=== PATIENT | male | born 1945 | race Two or more races ===

== ENCOUNTER 2017-03-20 17:21 | Inpatient (IN) | payer MEDICARE, OTHER ==
[~2017-03-20] VITALS: Ht 167.6 cm; Wt 127.0 kg
--- NOTE | 2017-03-20 17:24 | NUR ---
BIBRA FROM HOME DUE TO SOB X 1 WEEK WORST TODAY. PATIENT IS SATING 89% ON ROOM AIR,. AAO4. NO CHEST PAIN. AFEBRILE. GOWNED PT AND PLACED ON TELE MONITOR. VSS
[2017-03-20] MEDS ORDERED: ASPIRIN EC 325 MG TABLET.DR PO ONE (17:41)
[2017-03-20] MEDS ORDERED: FUROSEMIDE 40 MG/4 ML VIAL ONE (17:41)
[2017-03-20 17:59] LABS: BASOPHILS % (AUTO) 0.3 % (0.0-2.0); EOSINOPHILS # (AUTO) 0.3 /CMM (0.0-0.7); EOSINOPHILS % (AUTO) 4.8 % (0.0-6.0); HEMATOCRIT 43 % (39-51); HEMOGLOBIN 13.8 g/dL (13.5-17.5); LYMPHOCYTES # (AUTO) 1.2 /CMM (0.8-4.8); LYMPHOCYTES % (AUTO) 18.5 % (20.0-44.0); MEAN CORPUSCULAR HEMOGLOBIN 30 PG (26.0-33.0); MEAN CORPUSCULAR HGB CONC 32 g/dl (31.0-36.0); MEAN CORPUSCULAR VOLUME 93 fL (80-96); MONOCYTES # (AUTO) 0.6 /CMM (0.1-1.30); MONOCYTES % (AUTO) 9.4 % (2.0-12.0); NEUTROPHILS # (AUTO) 4.3 /CMM (1.8-8.9); PLATELET COUNT (AUTO) 161 /CMM (150-450); RDW COEFFICIENT OF VARIATION 14.6 (11.5-15.0); RED BLOOD CELL COUNT(AUTO) 4.58 MIL/uL (4.5-6.0); WHITE BLOOD COUNT (AUTO) 6.4 K/uL (4.3-11.0)
[2017-03-20] MEDS ORDERED: FUROSEMIDE 40 MG/4 ML VIAL IV ONE (18:00)
[2017-03-20] MEDS ORDERED: ASPIRIN 325 MG TABLET PO ONE (18:00)
[2017-03-20 18:16] LABS: TROPONIN I < 0.017 ng/mL (0.00-0.056)
[2017-03-20 18:18] LABS: INR 0.98 (0.87-1.13); PROTHROMBIN TIME 10.2 SECS (9.5-12.7)
[2017-03-20 18:21] LABS: ALANINE AMINOTRANSFERASE 26 U/L (12-78); ALBUMIN 3.4 g/dL (3.4-5.0); ALKALINE PHOSPHATASE 60 U/L (46-116); ASPARTATE AMINOTRANSFERASE 20 U/L (15-37); B-TYPE NATRIURETIC PEPTIDE 28 PG/ML (0-125); BILIRUBIN,DIRECT 0.1 mg/dL (0.0-0.2); BILIRUBIN,TOTAL 0.4 mg/dL (0.2-1.0); CALCIUM, SERUM 9.4 mg/dL (8.5-10.1); CHLORIDE 106 mmol/L (98-107); GLUCOSE 102 mg/dL (74-106); POTASSIUM 4.4 mmol/L (3.5-5.1); SODIUM SERUM 145 mmol/L (136-145); TOTAL PROTEIN, SERUM 7.3 g/dL (6.4-8.2); UREA NITROGEN, BLOOD 17 mg/dL (7-18)
[2017-03-20 18:41] LABS: CARBON DIOXIDE 40 mmol/L (21-32)
--- NOTE | 2017-03-20 19:03 | NUR ---
CALLED [facility] [employer], TUBE LASER OPERATOR WAS PAGED.
--- NOTE | 2017-03-20 19:24 | NUR ---
REPORT GIVEN TO PRADIP URIARTE FOR ALESSANDRO
[2017-03-20] MEDS ORDERED: MAG HYDROX/AL HYDROX/SIMETH 30 ML UDC PO PRN (19:30)
[2017-03-20] MEDS ORDERED: ONDANSETRON HCL/PF 4 MG/2 ML VIAL IVP PRN (19:30)
[2017-03-20] MEDS ORDERED: ZOLPIDEM TARTRATE 5 MG TABLET PO PRN (19:30)
[2017-03-20] MEDS ORDERED: Z GUARD REMEDY 2 OZ OINT TP PRN (19:30)
[2017-03-20] MEDS ORDERED: MAGNESIUM HYDROXIDE 30 ML UDC PO PRN (19:30)
[2017-03-20] MEDS ORDERED: ACETAMINOPHEN 325 MG TABLET PO PRN (19:30)
[2017-03-20] MEDS ORDERED: HYDROCODONE/APAP 10/325MG 1 EA TABLET PO PRN (19:30)
[2017-03-20] MEDS ORDERED: IOHEXOL-350 100 ML VIAL IV ONE (19:40)
--- NOTE | 2017-03-20 19:47 | NUR ---
PT TRANASPORTED TO CT VIA GURNEY BY RADIOLOGY TEAM
[2017-03-20 21:30] VITALS: BP 140/76
--- NOTE | 2017-03-20 21:30 | NUR ---
tele/rn notes RECEIVED NEW ADMITTED PATIENT ARRIVED FROM ER ON A GURNEY, MONTSERRATIAN SPEAKING OBESE MAN W/ DX SOB, REPORTED GRADUAL ONSET FOR THE PAST WEEK W/ HX OF CVA, HTN, CHF, IL W NKA. ALERT, ORIENTED X3, ON TELE AT NORMAL SR IN 80'S W SOME PAC. CONTINENT, WILL PROVIDE MEDICATION ORDERED, SLEEPING PILL REQUESTED, REPORTED PAIN IN RIGHT ARM,HOB ELEVATED ON OXYGEN VIA NC AT 2l, SKIN DRY AND INTACT. ALL 4 QUADRANTS NORMAL. CALL LIGHTS WITHIN REACH. ROOM ORIENTATION PROVIDED. BELONGINGS LIST CHECK. MD MEDICATION LIST ORDERED. SKIN INTACT W/ SOME REDNESS IN THE BACK. WILL CONTINUE TO MONITOR.
--- NOTE | 2017-03-20 21:34 | NUR ---
TRANSPORTED PT TO TELE BED WITHOUT INCIDENT
[2017-03-20 21:40] VITALS: BP 140/78
[2017-03-20] MEDS ORDERED: NITROGLYCERIN PACKET 1 GM PACKET ONE (22:06)
[2017-03-20] MEDS: HYDROCODONE/APAP 5/325MG 1 EACH TABLET PO PRN (22:13)
[2017-03-20] MEDS: METOPROLOL TARTRATE 25 MG TABLET PO SCH (22:14)
[2017-03-20] MEDS: NITROGLYCERIN 30 GM TUBE TP SCH (22:16)
[2017-03-20] MEDS: ENOXAPARIN SODIUM 40 MG/0.4 ML DISP.SYRIN SQ SCH (22:18)
[2017-03-21] VITALS (41 sets, daily range): BP systolic 72–127; BP diastolic 48–84
[2017-03-21] MEDS ORDERED: NITROGLYCERIN PACKET 1 GM PACKET ONE (04:58)
[2017-03-21] MEDS: NITROGLYCERIN 30 GM TUBE TP SCH ×3 (05:06→21:00)
[2017-03-21 05:55] LABS: CHOLESTEROL 155 mg/dL (<200); HDL CHOLESTEROL 80 mg/dL (40-60); LDL 65 mg/dL (0-99); TRIGLYCERIDES 88 mg/dL (30-150)
[2017-03-21 05:59] LABS: BASOPHILS % (AUTO) 0.3 % (0.0-2.0); EOSINOPHILS # (AUTO) 0.2 /CMM (0.0-0.7); EOSINOPHILS % (AUTO) 2.9 % (0.0-6.0); HEMATOCRIT 42 % (39-51); HEMOGLOBIN 13.5 g/dL (13.5-17.5); LYMPHOCYTES % (AUTO) 13.1 % (20.0-44.0); MEAN CORPUSCULAR HEMOGLOBIN 30 PG (26.0-33.0); MEAN CORPUSCULAR HGB CONC 32 g/dl (31.0-36.0); MEAN CORPUSCULAR VOLUME 94 fL (80-96); MONOCYTES # (AUTO) 0.7 /CMM (0.1-1.30); NEUTROPHILS # (AUTO) 5.6 /CMM (1.8-8.9); NEUTROPHILS % (AUTO) 74.7 % (43.0-81.0); PLATELET COUNT (AUTO) 163 /CMM (150-450); RED BLOOD CELL COUNT(AUTO) 4.44 MIL/uL (4.5-6.0); WHITE BLOOD COUNT (AUTO) 7.5 K/uL (4.3-11.0)
[2017-03-21 06:04] LABS: CALCIUM, SERUM 8.9 mg/dL (8.5-10.1); CARBON DIOXIDE 39 mmol/L (21-32); CHLORIDE 103 mmol/L (98-107); GLUCOSE 91 mg/dL (74-106); PHOSPHORUS 5.2 mg/dL (2.5-4.9); POTASSIUM 4.9 mmol/L (3.5-5.1); SODIUM SERUM 144 mmol/L (136-145); UREA NITROGEN, BLOOD 17 mg/dL (7-18)
--- NOTE | 2017-03-21 06:33 | NUR ---
TELE/RN OPENING NOTES PATIENT IN BED. REQUIRE REPOSITION, WILL CONTINUE MONITOR.. CALL LIGHTS WITHIN REACH, ON OXYGEN VIA NC AT 2L. MONITORING FOR ANY S/S OF .WILL ENDORSE TO AM RN.TELE READING AT SR 73 W/ PAC. ABLE TO SLEEP DURING THE NIGHT, PAIN MEDICATION EFFECTIVE. SKIN INTACT W/ NOTED DISCOLORATION ON RIGHT THIGH.
--- NOTE | 2017-03-21 07:30 | NUR ---
PROPULSION MOTOR AND GENERATOR REPAIRER AM NOTES PATIENT IN BED. AO X 3, HAITIAN SPEAKING, ON 2L O2, NO SOB, NAD, RESPIRATION UNLABORED, TELEMETRY READS SR HR 78, DENIES PAIN OR DISCOMFORT, LEFT AC G20 HL FLUSHES WELL, SITE CLEAR, CARDIAC DIET, BED REST FOR NOW, BED LOW LOCKED, CALL LIGHT WITHIN REACH, DISCUSSED POC, CALL LIGHT WITHIN REACH, WILL CONTINUE TO MONITOR.
[2017-03-21] MEDS: METOPROLOL TARTRATE 25 MG TABLET PO SCH ×2 (09:00→16:57)
[2017-03-21] MEDS ORDERED: FUROSEMIDE 40 MG/4 ML VIAL IV SCH (09:00)
--- NOTE | 2017-03-21 09:30 | NUR ---
MS RN NOTES SCHEDULED 0900 MEDICATIONS NOT GIVEN, PATIENT TOOK OWN MEDICATIONS, MICHELE CRANDALL AWARE.
[2017-03-21] MEDS ORDERED: DOXA8TAB79 PO (10:17)
[2017-03-21] MEDS ORDERED: FINA5TAB3 PO (10:17)
[2017-03-21] MEDS ORDERED: GABA600T2 PO (10:17)
[2017-03-21] MEDS ORDERED: ATOR40TA PO (10:17)
[2017-03-21] MEDS ORDERED: FURO40TA5 PO (10:17)
[2017-03-21] MEDS ORDERED: SERT50TA PO (10:17)
[2017-03-21] MEDS ORDERED: BENA40TA2 PO (10:17)
[2017-03-21] MEDS ORDERED: TEMA30CA PO (10:17)
[2017-03-21] MEDS ORDERED: HYDR-552 PO (10:17)
[2017-03-21] MEDS ORDERED: PROP15DR EACHEYE (10:19)
[2017-03-21] MEDS ORDERED: ALBUTEROL FS 2.5 MG/0.5 ML VIAL.NEB NEB PRN (11:00)
[2017-03-21] MEDS: IPRATROPIUM NEB FS 0.5 MG/2.5 ML AMPUL.NEB NEB SCH ×3 (11:09→19:55)
[2017-03-21] MEDS ORDERED: PEG EACHEYE PRN (12:00)
[2017-03-21] MEDS ORDERED: TEMAZEPAM 15 MG CAPSULE PO PRN (12:00)
[2017-03-21] MEDS ORDERED: PROPYLENE GLYCOL EACHEYE PRN (12:00)
[2017-03-21] MEDS: GABAPENTIN 300 MG CAPSULE PO SCH ×3 (12:13→21:09)
[2017-03-21] MEDS: DOXAZOSIN MESYLATE (4 MG) 4 MG TABLET PO SCH (12:14)
[2017-03-21 14:44] LABS: ABG BASE EXCESS 8.3 mmol/L; ABG PCO2 81.8 mmHg (35.0-45.0); ABG PH 7.286 (7.350-7.450); ABG PO2 77.5 mmHg (75.0-100.0); AaDO2 25.6 mmHg; COHb 0.5 % (0.5-1.5); MetHb 0.7 % (0.0-1.5); O2Hb 92.9 % (94.0-97.0); SITE, ABG Right Radial; VENT MODE, BG NASAL CANNULA
--- NOTE | 2017-03-21 14:45 | NUR ---
ELECTROTYPE MOLDER NOTES ABG RESULT RELAYED TO MICHELE STEPHENS, PER HER TO TRANSFER PT TO ICU AND START BIPAP.
--- NOTE | 2017-03-21 15:45 | NUR ---
HAMMERER HELPER NOTES PATIENT STARTED ON BIPAP EARLIER. TRANSFERRED TO ICU RM 254. REPORT GIVEN TO IRVIN. ALL BELONGINGS CHECKED AND TRANSFERRED.
[2017-03-21] MEDS: ACETYLCYSTEINE 10% SOLN 400 MG/4 ML VIAL NEB SCH (16:00)
--- NOTE | 2017-03-21 16:00 | NUR ---
PATIENT TRANSFERRED TO ICU AND PLACED ON BIPAP WITH SETTINGS SET PER DR HERNANDEZ. ALARMS CHECKED + AUDIBLE. AMBU BAG AT HOB Addendum: 03/21/17 at 1633 by CHARISSE CARRERA RT Amended: Links added.
--- NOTE | 2017-03-21 16:50 | NUR ---
PAPER AND PRINTS RESTORER RECEIVED PT FROM 3RD FLOOR BY BED FOR ALOC AND ABNORMAL ABG. REPORT RECEIVED FROM HENRIETTA. PT OBTUNDED AROUSEABLE ONLY TO VIGOROUS CHEST RUBS. PLACED ON BIPAP. DR HERNANDEZ EVALUATING PT. WILL START NEW IV LINES. WILL GET ABG IN 2 HOURS.
[2017-03-21] MEDS: BENAZEPRIL HCL 20 MG TABLET PO SCH (16:57)
[2017-03-21] MEDS ORDERED: IV D5/ 0.9% NACL 1,000 ML IV ONE (17:00)
[2017-03-21] MEDS ORDERED: IV NS 0.9% 250 ML BAG IV ONE (17:00)
[2017-03-21] MEDS ORDERED: IV NS 0.9% 250 ML IV ONE ×2 (17:00→18:00)
--- NOTE | 2017-03-21 17:15 | NUR ---
ICU/RN - Notes Pt more awake and alert at this time. On BiPap with settings as ordered, tolerating well. On tele reading SR with PAC's 76. Blood pressure marginally hypotensive, pt was given 250mL NS bolus and started on IVF D5 1/2NS @ 100mL/hr. Pt kept NPO. Daughter at bedside and updated on plan of care. Safety and comfort measures in place. Will continue to monitor pt closely.
--- NOTE | 2017-03-21 17:46 | NUR ---
ICU/RN - Notes Jenni Courtney NP made aware that pt still hypotensive with BP 88/51. Received orders to give another 250mL NS bolus. Will carry out.
[2017-03-21 18:01] LABS: ABG BASE EXCESS 7.9 mmol/L; ABG PCO2 78.1 mmHg (35.0-45.0); ABG PH 7.296 (7.350-7.450); AaDO2 44.1 mmHg; COHb 0.3 % (0.5-1.5); MetHb 0.7 % (0.0-1.5); O2Hb 93.1 % (94.0-97.0); SITE, ABG Right Radial; VENT MODE, BG BIPAP 22/12 R14 30%
--- NOTE | 2017-03-21 18:43 | NUR ---
ICU/RN - Notes Pt complains of SOB and requests for breathing treatment. RT at bedside for treatment. Addendum: 03/22/17 at 0730 by DIONICIO RODRIGUEZ RN Wrong patient
--- NOTE | 2017-03-21 18:50 | NUR ---
ICU/RN - Notes Jenni Courtney NP made aware that pt still remains hypotensive with BP 80/54. No urine output. Received orders to start pt on Levophed to keep SBP >90, change IVF rate to 75mL/hr, and insert escobar catheter. Daughter at bedside and updated on plan of care.
[2017-03-21] MEDS: IV D5/ 0.9% NACL 1,000 ML IV PRN (18:55)
[2017-03-21] MEDS ORDERED: IV D5/0.45 NACL 1,000 ML IV PRN (19:00)
[2017-03-21] MEDS ORDERED: NOREPINEPHRINE 8 MG in IV D5W 500 ML IV PRN (19:00)
--- NOTE | 2017-03-21 20:00 | NUR ---
RN INITIAL NOTES RECEIVED THE PATIENT ON BED, AWAKE, A/O X2-3, MAINLY TUVALUAN SPEAKING. ON BIPAP WITH SETTINGS RATE 14, 30% FIO2, 25/12, SATURATING WELL, NO S/S OF RESP DISTRESS. CURRENTLY SR ON THE MONITOR, HR 70-80'S. ON DIAPERS ONLY, MAYO CATH IS ORDERED TO BE INSERTED. LEFT AC 20G, LEFT WRIST 20G AND RIGHT HAND 20G WITH D5 1/2NS @ 75MLS/HR, ALL LINES FLUSHED AND PATENT, NO S/S OF INFILTRATION/INFECTION, DRESSINGS CDI. BED LOW AND LOCKED, SIDERAILS UP, CALL LIGHT WITHIN REACH. WILL MONITOR
--- NOTE | 2017-03-21 20:51 | NUR ---
RN NOTES 1999 - NOTIFIED MICHELE CRANDALL NP THAT MAYO INSERTION WAS UNSUCCESSFUL EVEN WITH A COUDET CATHETER. ATTEMPTS WERE DONE BY 3 RN'S INCLUDING THE CRIMINAL INVESTIGATOR CUSTOMS. NOTIFIED HER THAT THERE SEEMS TO BE AN OBSTRUCTION. KARLEY STEPHENS ORDERED FLOMAX TO BE STARTED TONIGHT AND TO DO A BLADDER SCAN TO CHECK URINE RESIDUALS 2029 - NOTIFIED MICHELE CRANDALL NP THAT BLADDER SCAN IS MALFUNCTIONING, ALWAYS SHOWING A ZERO VALUE APPARENTLY SINCE LAST WEEK PER OTHER RN'S. PT IS NOT DISTENDED, DENIES ANY PAIN OR PRESSURE FROM THE ABDOMINAL AREA. LAST KNOWN VOID WAS NOON TODAY 2039 - FARM MECHANIC SHELBY WAS CALLED TO SEE IF HE CAN TRY TO INSERT A COUDET CATH WHEN HE HAS TIME. PER KARLEY STEPHENS, IF UNSUCCESSFUL ATTEMPT BY FARM MECHANIC, ORDER STAT ULTRASOUND OF THE BLADDER FOR THE PATIENT
[2017-03-21] MEDS: TAMSULOSIN 0.4 MG CAP.SR.24H PO SCH (21:07)
[2017-03-21] MEDS: HYDROCODONE/APAP 5/325MG 1 EACH TABLET PO PRN (21:09)
[2017-03-21] MEDS: ENOXAPARIN SODIUM 40 MG/0.4 ML DISP.SYRIN SQ SCH (21:10)
--- NOTE | 2017-03-21 21:58 | NUR ---
RN NOTES US BLADDER DONE WITH 120MLS RESIDUALS NOTED. NOTIFIED KARLEY FREEZER TUNNEL OPERATOR. ALSO TOLD HER PATIENT IS REQUESTING TEMAZEPAM FOR SLEEPING. KARLEY STEPHENS ORDERED 7.5MG TEMAZEPAM PRN FOR SLEEPING. SHE ALSO SAID TO REMIND DIRECTOR RECREATION IF THEY COULD POSSIBLE INSERT MAYO WHEN THEY ARE NOT BUSY
[2017-03-21] MEDS ORDERED: TEMAZEPAM 7.5 MG CAPSULE ONE (22:06)
[2017-03-21] MEDS: TEMAZEPAM 7.5 MG CAPSULE PO PRN (22:10)
[2017-03-22] VITALS (50 sets, daily range): BP systolic 97–140; BP diastolic 45–91
[2017-03-22] MEDS: ACETYLCYSTEINE 10% SOLN 400 MG/4 ML VIAL NEB SCH ×4 (00:07→23:48)
[2017-03-22] MEDS: IPRATROPIUM NEB FS 0.5 MG/2.5 ML AMPUL.NEB NEB SCH ×7 (00:07→23:48)
[2017-03-22] MEDS: IV D5/ 0.9% NACL 1,000 ML IV PRN ×2 (02:10→16:07)
[2017-03-22 04:46] LABS: BASOPHILS % (AUTO) 0.3 % (0.0-2.0); EOSINOPHILS # (AUTO) 0.1 /CMM (0.0-0.7); HEMATOCRIT 38 % (39-51); HEMOGLOBIN 12.3 g/dL (13.5-17.5); LYMPHOCYTES # (AUTO) 0.9 /CMM (0.8-4.8); LYMPHOCYTES % (AUTO) 13.1 % (20.0-44.0); MEAN CORPUSCULAR HEMOGLOBIN 30 PG (26.0-33.0); MEAN CORPUSCULAR HGB CONC 33 g/dl (31.0-36.0); MEAN CORPUSCULAR VOLUME 93 fL (80-96); MONOCYTES # (AUTO) 0.6 /CMM (0.1-1.30); MONOCYTES % (AUTO) 9.5 % (2.0-12.0); NEUTROPHILS % (AUTO) 76.1 % (43.0-81.0); PLATELET COUNT (AUTO) 143 /CMM (150-450); RDW COEFFICIENT OF VARIATION 14.8 (11.5-15.0); RED BLOOD CELL COUNT(AUTO) 4.06 MIL/uL (4.5-6.0); WHITE BLOOD COUNT (AUTO) 6.5 K/uL (4.3-11.0)
[2017-03-22] MEDS ORDERED: NITROGLYCERIN PACKET 1 GM PACKET ONE (04:47)
[2017-03-22] MEDS: NITROGLYCERIN 30 GM TUBE TP SCH ×3 (04:56→21:29)
[2017-03-22 05:13] LABS: CALCIUM, SERUM 8.8 mg/dL (8.5-10.1); CARBON DIOXIDE 38 mmol/L (21-32); CHLORIDE 106 mmol/L (98-107); CREATININE 1.2 mg/dL (0.6-1.3); GLUCOSE 105 mg/dL (74-106); MAGNESIUM 2.1 mg/dL (1.8-2.4); PHOSPHORUS 3.9 mg/dL (2.5-4.9); SODIUM SERUM 143 mmol/L (136-145); UREA NITROGEN, BLOOD 30 mg/dL (7-18)
--- NOTE | 2017-03-22 06:30 | NUR ---
RN CLOSING NOTES PT REMAINS STABLE OF THE MOMENT. REMAINS TO BE ON BIPAP WITH SAME SETTINGS. ALL DUE MEDS GIVEN, AM CARE PROVIDED. WILL ENDORSE CONTINUITY OF CARE TO AM RN
--- NOTE | 2017-03-22 07:45 | NUR ---
ICU/RN - Initial Notes Received pt in bed on Bipap, with settings as ordered. Alert and oriented x3. Denies pain or discomfort. On tele reading SR 69. PICC line on CAMRON patent and intact, with IVF infusing well. Safety and comfort measures in place. Will continue to monitor pt closely.
[2017-03-22] MEDS: FINASTERIDE (5 MG) 5 MG TABLET PO SCH (08:13)
[2017-03-22] MEDS: ASPIRIN 81 MG TAB.CHEW PO SCH (08:13)
[2017-03-22] MEDS: BENAZEPRIL HCL 20 MG TABLET PO SCH ×2 (08:13→16:08)
[2017-03-22] MEDS: GABAPENTIN 300 MG CAPSULE PO SCH ×4 (08:13→21:28)
[2017-03-22] MEDS: SERTRALINE HCL 50 MG TABLET PO SCH (08:13)
[2017-03-22] MEDS: ATORVASTATIN 40 MG TABLET PO SCH (08:13)
[2017-03-22] MEDS: DOXAZOSIN MESYLATE (4 MG) 4 MG TABLET PO SCH (08:13)
[2017-03-22] MEDS: METOPROLOL TARTRATE 25 MG TABLET PO SCH ×2 (08:14→16:08)
--- NOTE | 2017-03-22 08:15 | NUR ---
ICU/RN - Notes Pt placed on O2 @ 4lpm via nasal cannula by Nisreen CRUZ. Tolerating well, no s/s of respiratory distress. Pt given PO medications, no s/s of aspiration.
[2017-03-22 09:22] LABS: ABG BASE EXCESS 8.8 mmol/L; ABG OXYGEN SATURATION 95.1 % (92.0-98.5); ABG PCO2 66.8 mmHg (35.0-45.0); ABG PH 7.357 (7.350-7.450); ABG PO2 83.4 mmHg (75.0-100.0); AaDO2 95.8 mmHg; COHb 0.6 % (0.5-1.5); MetHb 0.4 % (0.0-1.5); O2Hb 94.1 % (94.0-97.0); SITE, ABG Right Radial; VENT MODE, BG NASAL CANNULA
--- NOTE | 2017-03-22 13:33 | NUR ---
ICU/RN - Notes Physical therapy at bedside for evaluation. Pt sitting on chair at bedside, in no acute distress.
--- NOTE | 2017-03-22 17:00 | NUR ---
ICU/RN - Notes Pt noted with desaturation SpO2 86% on room air. Pt placed back on nasal cannula @ 2lpm. Will continue to monitor.
--- NOTE | 2017-03-22 18:12 | NUR ---
ICU/RN - Notes Pt eating dinner in no acute distress. Daughter at bedside.
--- NOTE | 2017-03-22 19:30 | NUR ---
EMBROIDERY CUTTER: RECEIVED PT ALERT AND ORIENTED X 3. ON 2L 02 VIA NC WT NO ACUTE DISTRESS. NO C/O PAIN OR EVIDENCE OF DISCOMFORT. SR ON INSTRUMENT INSTALLER. ANGELA PICC LINE INFUSING D5NS AT 75ML/HR WT NO COMPLICATIONS. HOB AT 35 DEGREES. REPOSITIONED FOR COMFORT. SAFETY PRECAUTION NOTED. WILL CONTINUE TO MONITOR.
[2017-03-22] MEDS: ENOXAPARIN SODIUM 40 MG/0.4 ML DISP.SYRIN SQ SCH (21:28)
[2017-03-22] MEDS: TAMSULOSIN 0.4 MG CAP.SR.24H PO SCH (21:28)
[2017-03-22] MEDS: TEMAZEPAM 7.5 MG CAPSULE PO PRN (21:28)
[2017-03-23] VITALS (27 sets, daily range): BP systolic 112–142; BP diastolic 46–89
--- NOTE | 2017-03-23 00:10 | NUR ---
ORGAN GRINDER: CALLED AND NOTIFIED DR. LOBO THAT PT INSISTED THAT HE SHOULD BE GIVEN TEMAZEPAM 30MG NOT JUST 7.5MG FOR HIM TO BE ABLE TO GO TO SLEEP AND ALSO REFUSED BIPAP AT THIS TIME UNTIL HE GETS TOTAL DOSAGE OF 30MG. VERIFIED WT MD HOME MEDS AND PT WAS INDEED TAKING TEMAZEPAM 30MG. MD AGREED WT ORDER TO GIVE TEMAZEPAM 7.5MG X 3 CAPS TO COMPLETE 30MG DOSAGE. NOTED AND CARRIED. PT MADE AWARE. NO SIGNIFICANT ALESSANDRO. PT SAID HE WILL INFORM RT WHEN HE'S READY FOR BIPAP. SAFETY PRECAUTION NOTED AT ALL TIMES
[2017-03-23] MEDS ORDERED: TEMAZEPAM 7.5 MG CAPSULE PO ONE ×2 (00:30)
[2017-03-23] MEDS ORDERED: TEMAZEPAM 15 MG CAPSULE PO ONE (00:30)
--- NOTE | 2017-03-23 00:59 | NUR ---
PLACED ON NOC BIPAP. RN NOTIFIED. WILL CONTINUE TO MONITOR.
--- NOTE | 2017-03-23 01:30 | NUR ---
LICENSED REACTOR OPERATOR: TOLERATING BIPAP SETTINGS ORDERED. NO ACUTE DISTRESS. ASLEEP. EASILY AROUSED WT TOUCH STIMULI. WILL CONTINUE TO MONITOR.
[2017-03-23] MEDS: IPRATROPIUM NEB FS 0.5 MG/2.5 ML AMPUL.NEB NEB SCH ×6 (03:10→23:30)
[2017-03-23 04:34] LABS: BASOPHILS % (AUTO) 0.4 % (0.0-2.0); EOSINOPHILS # (AUTO) 0.1 /CMM (0.0-0.7); EOSINOPHILS % (AUTO) 1.8 % (0.0-6.0); HEMATOCRIT 36 % (39-51); HEMOGLOBIN 11.7 g/dL (13.5-17.5); LYMPHOCYTES # (AUTO) 1.1 /CMM (0.8-4.8); LYMPHOCYTES % (AUTO) 17.3 % (20.0-44.0); MEAN CORPUSCULAR HEMOGLOBIN 30 PG (26.0-33.0); MEAN CORPUSCULAR HGB CONC 32 g/dl (31.0-36.0); MEAN CORPUSCULAR VOLUME 94 fL (80-96); MONOCYTES # (AUTO) 0.7 /CMM (0.1-1.30); MONOCYTES % (AUTO) 10.2 % (2.0-12.0); NEUTROPHILS # (AUTO) 4.5 /CMM (1.8-8.9); NEUTROPHILS % (AUTO) 70.3 % (43.0-81.0); RED BLOOD CELL COUNT(AUTO) 3.83 MIL/uL (4.5-6.0); WHITE BLOOD COUNT (AUTO) 6.4 K/uL (4.3-11.0)
[2017-03-23] MEDS: NITROGLYCERIN 30 GM TUBE TP SCH ×3 (04:44→21:55)
[2017-03-23 04:45] LABS: CALCIUM, SERUM 8.4 mg/dL (8.5-10.1); CARBON DIOXIDE 35 mmol/L (21-32); CHLORIDE 107 mmol/L (98-107); GLUCOSE 100 mg/dL (74-106); PHOSPHORUS 3.2 mg/dL (2.5-4.9); POTASSIUM 4.2 mmol/L (3.5-5.1); SODIUM SERUM 144 mmol/L (136-145); UREA NITROGEN, BLOOD 27 mg/dL (7-18)
[2017-03-23] MEDS: IV D5/ 0.9% NACL 1,000 ML IV PRN (04:49)
[2017-03-23 05:00] LABS: PLATELET COUNT (AUTO) 115 /CMM (150-450)
--- NOTE | 2017-03-23 05:31 | NUR ---
PT REQUESTED TO BE OFF BIPAP. PLACED ON NC 2L.
--- NOTE | 2017-03-23 06:35 | NUR ---
MIDDLE SCHOOL ENGLISH TEACHER: 02 SAT AT 94% ON 2L 02 VIA NC. REMAINED A/O X 3. NO ACUTE DISTRESS, NO EVIDENCE OF DISCOMFORT OR C/O PAIN. ALL NEEDS MET. SAFETY PRECAUTION NOTED AT ALL TIMES.
[2017-03-23] MEDS: ACETYLCYSTEINE 10% SOLN 400 MG/4 ML VIAL NEB SCH ×3 (07:35→23:31)
[2017-03-23] MEDS: ATORVASTATIN 40 MG TABLET PO SCH (08:14)
[2017-03-23] MEDS: ASPIRIN 81 MG TAB.CHEW PO SCH (08:14)
[2017-03-23] MEDS: BENAZEPRIL HCL 20 MG TABLET PO SCH ×2 (08:14→16:33)
[2017-03-23] MEDS: DOXAZOSIN MESYLATE (4 MG) 4 MG TABLET PO SCH (08:14)
[2017-03-23] MEDS: METOPROLOL TARTRATE 25 MG TABLET PO SCH ×2 (08:15→16:33)
[2017-03-23] MEDS: FINASTERIDE (5 MG) 5 MG TABLET PO SCH (08:15)
[2017-03-23] MEDS: SERTRALINE HCL 50 MG TABLET PO SCH (08:15)
[2017-03-23] MEDS: GABAPENTIN 300 MG CAPSULE PO SCH ×4 (08:15→21:54)
[2017-03-23] MEDS: ALBUTEROL FS 2.5 MG/0.5 ML VIAL.NEB NEB SCH ×4 (10:30→23:30)
--- NOTE | 2017-03-23 11:38 | NUR ---
VIDEO PRESENTATION OPERATOR NOTE 0720: Received patient awake A/Ox3, Bengali speaking. On 2LPM of O2 via NC tolerated. No respiratory distress noted at this time. No c/o discomfort. ANGELA PICC intact. PIVs intact. IVF infusing as ordered. SR on the monitor. 0830: S/E by Dr. Andujar, given update, per MD heart for transfer out from ICU. 1100: S/E by Roz STEPHENS, with order to may transfer to [facility], made CN aware. 1130: No any significant changes. Kept clean, warm and dry. Needs attended.
--- NOTE | 2017-03-23 19:30 | NUR ---
LITIGATION MANAGER: RECEIVED PT ALERT, AWAKE ORIENTED X 3. ON 2L 02 VIA NC WT NO ACUTE DISTRESS. NO C/O PAIN OR EVIDENCE OF DISCOMFORT. HOB AT 35 DEGREES. SR ON LOAN OFFICER ASSISTANT. BP WITHIN NL. AFEBRILE. EXPLAINED TO PT THAT HE WILL CONTINUE TO BE PLACED ON NOC. BIPAP, VERBALIZED UNDERSTANDING AND WILL LET US KNOW IF HE'S READY TO SLEEP. SAFETY PRECAUTION NOTED. CALL LIGHT WITHIN EASY REACH. WILL CONTINUE TO MONITOR.
--- NOTE | 2017-03-23 20:00 | NUR ---
briana rn notes received pts on bed awake alert and responsive , able to make needs known , v/s stable afebrile , on tele sr on the monitor no sob no distress no facial grimaces, on 2liters of 02 via nc sating 97% all needs attended too , due meds given as ordered , with gretel picc line tlc intact and patent , kept pts clean dry and comfortable, will continue to monitor pts. daughter at bedside updated with pts current condition , breathing tx given by rt sheila.
[2017-03-23] MEDS: TAMSULOSIN 0.4 MG CAP.SR.24H PO SCH (21:54)
[2017-03-23] MEDS: ENOXAPARIN SODIUM 40 MG/0.4 ML DISP.SYRIN SQ SCH (21:56)
[2017-03-23] MEDS: TEMAZEPAM 15 MG CAPSULE PO PRN (22:41)
--- NOTE | 2017-03-23 23:30 | NUR ---
PRINTING PRESS OPERATOR APPRENTICE: PLACED ON BIPAP WT SETTINGS ORDERED. TOLERATING WELL. RESTORIL WT GOOD EFFECT, ASLEEP AND EASILY AROUSED WHEN TOUCHED. WILL CONTINUE TO MONITOR.
[2017-03-24] VITALS (15 sets, daily range): BP systolic 99–141; BP diastolic 46–98
[2017-03-24] MEDS: IPRATROPIUM NEB FS 0.5 MG/2.5 ML AMPUL.NEB NEB SCH ×5 (03:22→19:03)
[2017-03-24] MEDS: ALBUTEROL FS 2.5 MG/0.5 ML VIAL.NEB NEB SCH ×5 (03:22→19:03)
[2017-03-24] MEDS: NITROGLYCERIN 30 GM TUBE TP SCH ×3 (05:09→21:00)
[2017-03-24 05:13] LABS: BASOPHILS % (AUTO) 0.4 % (0.0-2.0); EOSINOPHILS # (AUTO) 0.2 /CMM (0.0-0.7); EOSINOPHILS % (AUTO) 2.6 % (0.0-6.0); HEMATOCRIT 37 % (39-51); HEMOGLOBIN 12.1 g/dL (13.5-17.5); MEAN CORPUSCULAR HEMOGLOBIN 31 PG (26.0-33.0); MEAN CORPUSCULAR HGB CONC 33 g/dl (31.0-36.0); MEAN CORPUSCULAR VOLUME 94 fL (80-96); MONOCYTES # (AUTO) 0.6 /CMM (0.1-1.30); MONOCYTES % (AUTO) 10.7 % (2.0-12.0); NEUTROPHILS # (AUTO) 4.2 /CMM (1.8-8.9); NEUTROPHILS % (AUTO) 70.3 % (43.0-81.0); PLATELET COUNT (AUTO) 110 /CMM (150-450); RDW COEFFICIENT OF VARIATION 15.3 (11.5-15.0); RED BLOOD CELL COUNT(AUTO) 3.95 MIL/uL (4.5-6.0); WHITE BLOOD COUNT (AUTO) 5.9 K/uL (4.3-11.0)
[2017-03-24 05:26] LABS: CALCIUM, SERUM 8.8 mg/dL (8.5-10.1); CREATININE 0.9 mg/dL (0.6-1.3); GLUCOSE 93 mg/dL (74-106); MAGNESIUM 2.1 mg/dL (1.8-2.4); PHOSPHORUS 3.3 mg/dL (2.5-4.9); UREA NITROGEN, BLOOD 22 mg/dL (7-18)
--- NOTE | 2017-03-24 05:30 | NUR ---
QUALITY ASSURANCE MONITOR: REPORT GIVEN TO PRADIP ESCOBAR FOR [facility] TRANSFER.
[2017-03-24 05:34] LABS: CARBON DIOXIDE 35 mmol/L (21-32); CHLORIDE 106 mmol/L (98-107); POTASSIUM 4.1 mmol/L (3.5-5.1); SODIUM SERUM 145 mmol/L (136-145)
--- NOTE | 2017-03-24 06:00 | NUR ---
WHOLESALE REPRESENTATIVE: PT HAD BOWEL MOVEMENT, JEREMI/ORAL CARE RENDERED. OFF BIPAP AND PLACED ON 3L 02 VIA NC. TRANSFERRED TO [facility] ROOM 103 IN STABLE CONDITION. ENDORSED TO PRADIP ESCOBAR ALL BELONGINGS INCLUDING DENTURES, BLACK SHALOM PHONE, BLACK TABLET WT 2 CHARGERS.
--- NOTE | 2017-03-24 06:05 | NUR ---
briana rn notes received pts and report from ashland curriculum manager . pts on tele sr -72 on the monitor, pts is a/ox3 able to make needs known,v/s stable afebrile, no sob no distress noted no facial grimaces noted , breathing even unlabored , on 2liters of 02 via nasal cannula sating 96% well tolerated. pts on picc line on gretel intact and patent , all needs attended too call light within reach . kept pts clean dry and comfortable .v/s ui=933/70 hr=74 rr 18 temp=98.2, mary alice torn day for continuity of care.
[2017-03-24] MEDS: ACETYLCYSTEINE 10% SOLN 400 MG/4 ML VIAL NEB SCH ×2 (07:25→14:28)
--- NOTE | 2017-03-24 07:45 | NUR ---
RN [facility]: pt.is A/Ox3, no pain, no c/o now, on 2L O2 n/c, O2 sat. WNL, was in Bipap over night, SR, SBP over 100, weak wheezing, on resp.Tx, able to follow commands
[2017-03-24] MEDS: FINASTERIDE (5 MG) 5 MG TABLET PO SCH (08:37)
[2017-03-24] MEDS: SERTRALINE HCL 50 MG TABLET PO SCH (08:38)
[2017-03-24] MEDS: ASPIRIN 81 MG TAB.CHEW PO SCH (08:38)
[2017-03-24] MEDS: METOPROLOL TARTRATE 25 MG TABLET PO SCH ×2 (08:38→16:43)
[2017-03-24] MEDS: GABAPENTIN 300 MG CAPSULE PO SCH ×4 (08:38→21:06)
[2017-03-24] MEDS: DOXAZOSIN MESYLATE (4 MG) 4 MG TABLET PO SCH (08:39)
[2017-03-24] MEDS: ATORVASTATIN 40 MG TABLET PO SCH (08:39)
[2017-03-24] MEDS: BENAZEPRIL HCL 20 MG TABLET PO SCH ×2 (08:39→16:42)
--- NOTE | 2017-03-24 09:15 | NUR ---
RN [facility]: is in room, updated with pt.current condition, VS, O2sat., lungs sounds, I/O, see new orders
--- NOTE | 2017-03-24 11:45 | NUR ---
RN [facility]: pt.is tolerated well for PT, can sit now, but still with poor balance, Rt updated too, pt.is on resp.Tx, pt.family updated with pt.condition, VS, POC
--- NOTE | 2017-03-24 17:39 | NUR ---
RN [facility]: pt.is rest, no pain, no c/o, O2 sat 90-96%, SR, no SOB, feels better after respTx, PM/skin care done, per note: ok titrate O2 to keep sat 88-90%
--- NOTE | 2017-03-24 20:00 | NUR ---
[facility] RN NOTES RECEIVED PTS ON BED A/O X4 ABLE TO MAKE NEEDS KNOWN ,V/S STABLE AFEBRILE. ON TELE SR ON THE MONITOR , NO SOB NO DISTRESS NOTED NO FACIAL GRIMACES NOTED, DAUGHTER AT BEDSIDE , UPDATED WITH CURRENT CONDITION , PTS ON 2 LITER OF 02 VIA NASAL CANNULA SATING 94-95% HOB ELEVATED FOR ASPIRATION PRECAUTION, WITH RIGHT UA PICC LINE INTACT AND PATENT, ALL NEEDS ATTENDED TOO CALL LIGHT WITHIN REACH ALL DUE MEDS GIVEN ORDERED , KEPT PTS CLEAN DRY AND COMFORTABLE WILL CONTINUE TO MONITOR PTS,
[2017-03-24] MEDS: TAMSULOSIN 0.4 MG CAP.SR.24H PO SCH (21:07)
[2017-03-24] MEDS: ENOXAPARIN SODIUM 40 MG/0.4 ML DISP.SYRIN SQ SCH (21:13)
[2017-03-24] MEDS: TEMAZEPAM 15 MG CAPSULE PO PRN (22:40)
[2017-03-25] VITALS (7 sets, daily range): BP systolic 92–132; BP diastolic 49–71
[2017-03-25] MEDS: ACETYLCYSTEINE 10% SOLN 400 MG/4 ML VIAL NEB SCH ×4 (02:04→23:33)
[2017-03-25] MEDS: IPRATROPIUM NEB FS 0.5 MG/2.5 ML AMPUL.NEB NEB SCH ×7 (02:04→23:34)
[2017-03-25] MEDS: ALBUTEROL FS 2.5 MG/0.5 ML VIAL.NEB NEB SCH ×7 (02:04→23:34)
--- NOTE | 2017-03-25 04:00 | NUR ---
briana rn notes pts requested to off bipap at 4am saTING 94-95 % RT AT BEDSIDE , pts WAS put on 2 l1ters of 02 via nc SATING 93-94% SATURATION NO SOB NO DISTRESS NOTED NO C/O OF PAIN NOTED , WILL CONTINUE TO MONITOR PTS.
[2017-03-25] MEDS: NITROGLYCERIN 30 GM TUBE TP SCH ×3 (04:58→21:05)
--- NOTE | 2017-03-25 06:42 | NUR ---
[facility] RN NOTES PTS IN BED A/O X3 ON 2LITERS VIA NC SATING 93-94 % NO SOB NO DISTRESS NO C/O OF PAIN NOTED ,WILL ENDORSED TO RN DAY SHIFT FOR CONTINUITY OF CARE .
--- NOTE | 2017-03-25 08:00 | NUR ---
RN [facility]: pt.is sleepy, no c/o, no any pain, can follow commands, R.site weakness, was on Bipap over night, now: n/c O2 2L, sat. 92-96%, SR, SBP over 100, lungs sounds: ronchi, slightly wheezing, no SOB, on resp.Tx, was oriented for POC
[2017-03-25] MEDS: FINASTERIDE (5 MG) 5 MG TABLET PO SCH (09:15)
[2017-03-25] MEDS: ATORVASTATIN 40 MG TABLET PO SCH (09:15)
[2017-03-25] MEDS: ASPIRIN 81 MG TAB.CHEW PO SCH (09:16)
[2017-03-25] MEDS: BENAZEPRIL HCL 20 MG TABLET PO SCH ×2 (09:16→17:08)
[2017-03-25] MEDS: DOXAZOSIN MESYLATE (4 MG) 4 MG TABLET PO SCH (09:16)
[2017-03-25] MEDS: SERTRALINE HCL 50 MG TABLET PO SCH (09:16)
[2017-03-25] MEDS: METOPROLOL TARTRATE 25 MG TABLET PO SCH ×2 (09:17→17:02)
[2017-03-25] MEDS: GABAPENTIN 300 MG CAPSULE PO SCH ×4 (09:29→21:04)
--- NOTE | 2017-03-25 10:10 | NUR ---
RN [facility]: reevaluated orders, ABG order is active, will s/w RT, was updated with pt.current status, VS, I/O, lungs sounds, confirmed: continue Nitro paste patches, ok transfer to Tele
[2017-03-25 10:55] LABS: ABG BASE EXCESS 10.3 mmol/L; ABG OXYGEN SATURATION 91.1 % (92.0-98.5); ABG PCO2 73.9 mmHg (35.0-45.0); ABG PH 7.339 (7.350-7.450); ABG PO2 64.7 mmHg (75.0-100.0); AaDO2 33.1 mmHg; COHb 0.7 % (0.5-1.5); MetHb 0.7 % (0.0-1.5); O2Hb 89.8 % (94.0-97.0); SITE, ABG Right Radial; VENT MODE, BG NC 2L
--- NOTE | 2017-03-25 11:10 | NUR ---
RN [facility]: got ABG: pH 7.33, pCO2 73, pO2 64, HCO2 38, notified , he siad: place pt back on Bipap, RT Luís notified
[2017-03-25] MEDS ORDERED: IPRA0.2S9 NEB (12:59)
[2017-03-25] MEDS ORDERED: ENOX40DI SQ (12:59)
[2017-03-25] MEDS ORDERED: ALBU2.5V13 NEB (12:59)
[2017-03-25] MEDS ORDERED: ASPI81TA2 PO (12:59)
--- NOTE | 2017-03-25 13:15 | NUR ---
RN [facility]: Bipap alarming after mask position was adjusted x2, prob.needs big mask size, notified RT, FiO2 30%, 17/05, R14, O2sat. 94-98%, pt.family is in room, notified re events/VS/POC/orders, pt.is A/Ox3, no c/o, no SOB, SR, no any pain, HVAC TECHNICIAN RESIDENTIAL Roz is in unit, updated with all above
--- NOTE | 2017-03-25 18:00 | NUR ---
RN [facility]: pt.is on Bipap well with O2 sat. 95-100%, SR, no pain, no c/o, pt.family at BS/updated, PM/skin care done, no Bipap mask O2 flow leak, pt. daughter updated with POC
--- NOTE | 2017-03-25 20:00 | NUR ---
[facility] RN NOTES RECEIVED PTS ON BED A/OX3 ABLE TO MAKE NEEDS KNOWN , V/S STABLE /AFEBRILE ON TELE SR -86 ON 2 LITERS OF 02 SATING 96 %NO SOB NO DISTRESS NO C/O OF PAIN AT THIS TIME , FAMILY AT BEDSIDE UPDATED WITH PTS CURRENT CONDITION .HOB ELEVATED FOR ASPIRATION PRECAUTION , TURNED AND REPOSITION Q2 HRS DONE AND PRN . ALL NEEDS ATTENDED TOO CALL LIGHT WITHIN REACH , WITH ANGELA PICC LINE TLC SL INTACT AND PATENT WITH GOOD BLOOD RETURNS, ALSO WITH RIGHT HAND G#20 INTACT AND PATENT . ALL DUE MEDS GIVEN ORDERED.KEPT PTS CLEAN DRY AND COMFORTABLE.
[2017-03-25] MEDS: TAMSULOSIN 0.4 MG CAP.SR.24H PO SCH (21:05)
[2017-03-25] MEDS: ENOXAPARIN SODIUM 40 MG/0.4 ML DISP.SYRIN SQ SCH (21:07)
[2017-03-25] MEDS: TEMAZEPAM 15 MG CAPSULE PO PRN (23:17)
[2017-03-26] VITALS: BP 128/74
--- NOTE | 2017-03-26 | NUR ---
[facility] RN NOTES RT AT BEDSIDE , PTS WAS PUT TO BIPAP SETTINGS ORDERED, WELL TOLERATED BY PTS .SATING 95%NO SOB NO DISTRESS NOTED NO C/O OF PAIN NOTED ALL NEEDS ATTENDED TOO CALL LIGHT WITHIN REACH , KEPT PTS CLEAN DRY AND COMFORTABLE.
[2017-03-26 04:00] VITALS: BP 149/78
[2017-03-26] MEDS: ALBUTEROL FS 2.5 MG/0.5 ML VIAL.NEB NEB SCH ×4 (04:05→15:11)
[2017-03-26] MEDS: IPRATROPIUM NEB FS 0.5 MG/2.5 ML AMPUL.NEB NEB SCH ×4 (04:05→15:11)
[2017-03-26] MEDS: NITROGLYCERIN 30 GM TUBE TP SCH ×2 (04:41→12:12)
--- NOTE | 2017-03-26 05:45 | NUR ---
[facility] RN NOTES PTS REQUESTED TO OFF BIPAP RT MADE AWARE, PTS PUT ON 2 LITERS 0F O2 VIA NC SATING 93% PTS NOTED WHEEZING RT INFORMED FOR BREATHING TX, WILL CONTINUE TO MONITOR PTS.
--- NOTE | 2017-03-26 06:47 | NUR ---
[facility] RN NOTES PTS REMAINS IN BED ON 2 LITERS OF 02 VIA NC SATING 95% WILL CONTINUE TO MONITOR , WILL ENDORSE TO RN DAY SHIFT FOR CONTINUE OF CARE
[2017-03-26] MEDS: ACETYLCYSTEINE 10% SOLN 400 MG/4 ML VIAL NEB SCH ×2 (07:26→15:11)
--- NOTE | 2017-03-26 07:30 | NUR ---
INITIAL [facility] RN NOTE RCVD PT AWAKE AND ALERT, SHOWING NO S/O DISTRESS OR C/O PAIN AT THIS TIME. SR ON TELE. TOLERATING O2 VIA NC. RIGHT HAND IV SITE C/D/I/PATENT. NO S/O INFILTRATION/PHLEBITIS OBSERVED UPON FLUSHING. WILL CONTINUE TO MONITOR PT FOR SAFETY AND COMFORT. CALL LIGHT WITHIN REACH.
[2017-03-26 08:00] VITALS: BP 165/85
[2017-03-26] MEDS: ASPIRIN 81 MG TAB.CHEW PO SCH (08:00)
[2017-03-26] MEDS: GABAPENTIN 300 MG CAPSULE PO SCH ×2 (08:00→12:12)
[2017-03-26] MEDS: SERTRALINE HCL 50 MG TABLET PO SCH (08:00)
[2017-03-26] MEDS: FINASTERIDE (5 MG) 5 MG TABLET PO SCH (08:00)
[2017-03-26] MEDS: BENAZEPRIL HCL 20 MG TABLET PO SCH (08:01)
[2017-03-26] MEDS: DOXAZOSIN MESYLATE (4 MG) 4 MG TABLET PO SCH (08:01)
[2017-03-26] MEDS: METOPROLOL TARTRATE 25 MG TABLET PO SCH (08:01)
[2017-03-26] MEDS: ATORVASTATIN 40 MG TABLET PO SCH (08:03)
[2017-03-26] MEDS ORDERED: PNEUMOCOCCAL 23-VAL P-SAC VAC 0.5 ML VIAL SQ ONE (11:30)
[2017-03-26] MEDS ORDERED: FLU VACC QS 2017-18(36MOS+)/PF 0.5 ML DISP.SYRIN IM ONE (11:30)
--- NOTE | 2017-03-26 11:50 | NUR ---
[facility] RN NOTE KAT BAUTISTA AT PT'S BEDSIDE UPDATED ON PT'S CONDITION (REMAINS WHEEZY, CONGESTED) BUT TOLERATING O2 VIA NC WITH GOOD SATURATION. PT DOES NOT APPEAR TO BE SOB WHILE SPEAKING OR MOVING IN BED AND DENIES HX OF SMOKING. PT TO BE D/C TODAY TO [facility].
[2017-03-26 12:00] VITALS: BP 132/75
[2017-03-26 16:00] VITALS: BP 104/74
--- NOTE | 2017-03-26 17:31 | NUR ---
FINAL MIG TIG WELDER [facility] PT'S VITALS WNL. PT ALERT AND ORIENTED, PT'S DAUGHTER, BENITA AT BEDSIDE. PT'S BELONGINGS ACCOUNTED FOR, BELONGINGS SHEET SIGNED BY PT. D/C INSTRUCTIONS GIVEN. PT WAS VACCINATED FOR THE FLU AND PNA. PT TRANSPORTED VIA AMBULANCE. REPORT CALLED IN TO FACILITY AND GIVEN TO JOVANY, SPECIAL EVENTS FUNDRAISER.
[2017-03-27] MEDS ORDERED: ALBU2.5V13 IH (19:20)
[2017-03-27] MEDS ORDERED: ENOX40DI SQ (19:20)
[2017-03-27] MEDS ORDERED: IPRA0.2S9 IH (19:20)
[2017-03-27] MEDS ORDERED: ASPI81TA2 PO (19:20)
[2017-03-27] MEDS ORDERED: TEMA30CA PO (22:13)
== END 2017-03-26 17:23 | DRG 133 ==
LOC: ER 17:23 → TELE 19:49 → ICU 03-21 15:45 → TELE-TD 03-24 06:02 → TELE1 03-25 10:31 → TELE-TD 03-25 12:31
PROVIDERS: ADMIT Internal Medicine; ATTEND Internal Medicine
PROC: 5A09457 Assistance with Respiratory Ventilation, 24-96 Consecutive Hours, Continuous Positive Airway Pressure (ICD-10-PCS; principal; 2017-03-21)
PROC: 05H533Z Insertion of Infusion Device into Right Subclavian Vein, Percutaneous Approach (ICD-10-PCS; principal; 2017-03-21)
DX: J96.02 Acute respiratory failure with hypercapnia (principal); E43 Unspecified severe protein-calorie malnutrition; E87.2 Acidosis; D68.59 Other primary thrombophilia; R53.2 Functional quadriplegia; I69.851 Hemiplegia and hemiparesis following other cerebrovascular disease affecting right dominant side; I50.9 Heart failure, unspecified; I11.0 Hypertensive heart disease with heart failure; E88.09 Other disorders of plasma-protein metabolism, not elsewhere classified; E66.2 Morbid (severe) obesity with alveolar hypoventilation; Z68.42 Body mass index [BMI] 45.0-49.9, adult; J98.11 Atelectasis
CPT/HCPCS: 36415; 36569; 36600; 70450-TC; 71010-TC; 76856-TC; 80048-TC; 80061-TC; 80076-TC; 82803-TC; 83735-TC; 83880; 84100-TC; 84484-TC; 85025-TC; 85378-TC; 85730-TC; 87081-TC; 90732; 93307-TC; 94002-TC; 94762-TC; 97110-TC; 97112-TC; 97530-TC; A4606; C1751; J1650; J1940; J7042; J7050; J7060; Q2036; Q9967; Z7610

== ENCOUNTER 2017-03-27 18:24 | Inpatient (IN) | payer MEDICARE, OTHER ==
[~2017-03-27] VITALS: Ht 162.6 cm; Wt 137.9 kg
[~2017-03-27 18:24] MED LIST: ALBU2.5V13 NEB; ASPI81TA2 PO; ATOR40TA PO; BENA40TA2 PO; DOXA8TAB79 PO; ENOX40DI SQ; FINA5TAB3 PO; FURO40TA5 PO; GABA600T2 PO; HYDR-552 PO; IPRA0.2S9 NEB; PROP15DR EACHEYE; SERT50TA PO; TEMA30CA PO
[2017-03-27] MEDS ORDERED: ASPI81TA2 PO (19:20)
[2017-03-27] MEDS ORDERED: IPRA0.2S9 IH (19:20)
[2017-03-27] MEDS ORDERED: ENOX40DI SQ (19:20)
[2017-03-27] MEDS ORDERED: ALBU2.5V13 IH (19:20)
[2017-03-27 19:22] LABS: CALCIUM, SERUM 9.1 mg/dL (8.5-10.1); CHLORIDE 102 mmol/L (98-107); GLUCOSE 140 mg/dL (74-106); POTASSIUM 3.8 mmol/L (3.5-5.1); SODIUM SERUM 141 mmol/L (136-145); UREA NITROGEN, BLOOD 22 mg/dL (7-18)
[2017-03-27 19:30] LABS: BASOPHILS % (AUTO) 0.5 % (0.0-2.0); EOSINOPHILS # (AUTO) 0.1 /CMM (0.0-0.7); EOSINOPHILS % (AUTO) 2.1 % (0.0-6.0); HEMATOCRIT 37 % (39-51); HEMOGLOBIN 12.2 g/dL (13.5-17.5); LYMPHOCYTES # (AUTO) 1.1 /CMM (0.8-4.8); LYMPHOCYTES % (AUTO) 19.2 % (20.0-44.0); MEAN CORPUSCULAR HEMOGLOBIN 30 PG (26.0-33.0); MEAN CORPUSCULAR HGB CONC 33 g/dl (31.0-36.0); MEAN CORPUSCULAR VOLUME 93 fL (80-96); MONOCYTES # (AUTO) 0.8 /CMM (0.1-1.30); MONOCYTES % (AUTO) 13.9 % (2.0-12.0); NEUTROPHILS # (AUTO) 3.6 /CMM (1.8-8.9); NEUTROPHILS % (AUTO) 64.3 % (43.0-81.0); PLATELET COUNT (AUTO) 103 /CMM (150-450); RDW COEFFICIENT OF VARIATION 13.4 (11.5-15.0); RED BLOOD CELL COUNT(AUTO) 4.02 MIL/uL (4.5-6.0); TROPONIN I < 0.017 ng/mL (0.00-0.056); WHITE BLOOD COUNT (AUTO) 5.6 K/uL (4.3-11.0)
[2017-03-27 19:34] LABS: CARBON DIOXIDE 41 mmol/L (21-32); INR 1.01 (0.87-1.13); PROTHROMBIN TIME 10.5 SECS (9.5-12.7)
--- NOTE | 2017-03-27 19:48 | NUR ---
CALLED [employer], SADDLE STITCH OPERATOR WAS PAGED.
[2017-03-27 19:50] LABS: ABG BASE EXCESS 12.1 mmol/L; ABG OXYGEN SATURATION 92.2 % (92.0-98.5); ABG PCO2 81.4 mmHg (35.0-45.0); ABG PH 7.326 (7.350-7.450); ABG PO2 67.9 mmHg (75.0-100.0); AaDO2 123.7 mmHg; COHb 1.3 % (0.5-1.5); MetHb 0.2 % (0.0-1.5); O2Hb 90.8 % (94.0-97.0); PEEP,BG 5 cm H2O; SITE, ABG Right Radial
--- NOTE | 2017-03-27 20:01 | NUR ---
DINA SPOKE WITH LASHELL FOR ADMISSION. PT OKAY TO TRANSFER TO FLOOR
--- NOTE | 2017-03-27 20:03 | NUR ---
BED 254
[2017-03-27] MEDS ORDERED: ACETAMINOPHEN 325 MG TABLET PO PRN (20:30)
[2017-03-27] MEDS ORDERED: ONDANSETRON HCL/PF 4 MG/2 ML VIAL IVP PRN (20:30)
[2017-03-27] MEDS ORDERED: ZOLPIDEM TARTRATE 5 MG TABLET PO PRN (20:30)
[2017-03-27] MEDS ORDERED: Z GUARD REMEDY 2 OZ OINT TP PRN (20:30)
[2017-03-27] MEDS ORDERED: MAG HYDROX/AL HYDROX/SIMETH 30 ML UDC PO PRN (20:30)
[2017-03-27] MEDS ORDERED: MAGNESIUM HYDROXIDE 30 ML UDC PO PRN (20:30)
--- NOTE | 2017-03-27 21:14 | NUR ---
REPORT GIVEN TO GEORGE MOSELEY IN ICU.
--- NOTE | 2017-03-27 21:15 | NUR ---
RN NOTES RECEIVED REPORT FROM PRADIP TEJADA FOR PATIENT'S ALESSANDRO
--- NOTE | 2017-03-27 21:30 | NUR ---
RN NOTES PT ARRIVED VIA GURNEY, TOLERATED TRANSFER TO BED WELL. CURRENTLY ON NON-REBREATHER, SATURATING WELL, NO S/S OF RESP DISTRESS; PT WILL BE ON NOCTURNAL BIPAP. A/O X3, ABLE TO FOLLOW COMMANDS. CURRENTLY SR ON THE MONITOR, HR 80-90'S. PT IS ON DIAPER ONLY. NOTED REDNESS ON LOWER RIGHT ABDOMEN, SKIN OTHERWISE INTACT. RIGHT WRIST 18G, FLUSHED AND PATENT, NO S/S OF INFILTRATION/INFECTION, DRESSING CDI. BED LOW AND LOCKED, SIDERAILS UP, CALL LIGHT WITHIN REACH. WILL MONITOR
[2017-03-27 21:41] VITALS: BP 140/61
[2017-03-27 22:00] VITALS: BP 144/65
[2017-03-27] MEDS ORDERED: TEMA30CA PO (22:13)
[2017-03-27] MEDS ORDERED: TEMAZEPAM 15 MG CAPSULE ONE (22:20)
[2017-03-27] MEDS: GABAPENTIN 300 MG CAPSULE PO SCH (22:24)
[2017-03-27 22:30] VITALS: BP 132/70
[2017-03-27] MEDS ORDERED: TEMAZEPAM 15 MG CAPSULE PO PRN (22:30)
[2017-03-27 23:00] VITALS: BP 117/59
[2017-03-27] MEDS: IPRATROPIUM NEB FS 0.5 MG/2.5 ML AMPUL.NEB IH SCH (23:21)
[2017-03-27] MEDS: ALBUTEROL FS 2.5 MG/0.5 ML VIAL.NEB IH SCH (23:21)
[2017-03-27 23:30] VITALS: BP 90/56
[2017-03-28] VITALS (7 sets, daily range): BP systolic 88–127; BP diastolic 54–71
--- NOTE | 2017-03-28 | NUR ---
RN NOTES GAVE REPORT TO PRADIP ROBINS FOR THE PATIENT'S ALESSANDRO IN [facility]
--- NOTE | 2017-03-28 00:24 | NUR ---
PT TRANSFERRED TO [facility]. WILL CONTINUE TO MONITOR.
--- NOTE | 2017-03-28 01:38 | NUR ---
RN:TD: PT RECEIVED IN BED FOLLOWING TRANSFER. PT RECENTLY ADMITTED FOR RESPIRATORY DISTRESS, AND IS ON NOCTURNAL BIPAP. PT WELL SEDATED FOLLOWING RESTORIL ADMIN. WILL VERIFY WITH MD REGARDING ABG ORDER THAT HAS NO TIME AND CODE STATUS. ACCORDING TO H&P PT IS DNR/DNI BUT PT IS NOT AROUSABLE. DISCUSSED RESPIRATORY STATUS WITH RT. BIPAP MACHINE CONTINUES TO ALARM DUE TO AIR LEAK. RT AWARE. WILL CONTINUE TO MONITOR CLOSELY.
--- NOTE | 2017-03-28 02:17 | NUR ---
RN:TD: PER , WHEN PT WAS ADMITTED THAT DAUGHTER VERIFIED WITH PT THAT HE WANTS DNR/DNI. ORDERS OBTAINED AND CHARGE NURSE VERIFIED. PER MD ABG THAT WAS ORDERED FOR TODAY MUST BE PERFORMED NOW. MD MADE AWARE OF PT MENTAL STATUS AND INABILITY TO AROUSE PT. NEW ORDERS TO D/C RESTORIL. RT MADE AWARE OF ABG ORDER. WILL CONTINUE TO MONITOR CLOSELY.
[2017-03-28] MEDS ORDERED: FLUMAZENIL 0.5 MG VIAL IV PRN (03:00)
[2017-03-28] MEDS ORDERED: FLUMAZENIL 0.5 MG VIAL ONE (03:09)
--- NOTE | 2017-03-28 03:21 | NUR ---
rn:td: abg results d/w md. new orders to reverse benzo given earlier. pt now able to follow commands. will continue to monitor closely.
[2017-03-28] MEDS: ALBUTEROL FS 2.5 MG/0.5 ML VIAL.NEB IH SCH ×6 (03:34→22:59)
[2017-03-28] MEDS: IPRATROPIUM NEB FS 0.5 MG/2.5 ML AMPUL.NEB IH SCH ×6 (03:35→22:59)
--- NOTE | 2017-03-28 03:39 | NUR ---
IPAP CHANGED TO [address] LOBO.
--- NOTE | 2017-03-28 04:25 | NUR ---
RN:TD: PT REMAINS LETHARGIC BUT NOW AROUSABLE FOLLOWING ROMAZICON ADMIN. CHANGES MADE TO BIPAP TO ASSIST WITH HYPERCARBIA. PT REFUSING AM BED BATH. WILL ENDORSE TO ONCOMING SHIFT. FALL/ASPIRATION PRECAUTIONS IN PLACE.
--- NOTE | 2017-03-28 06:14 | NUR ---
rn:td: pt has cellphone at the bedside. this is pt only belongings. pt continues to refuse am care. will endorse to oncoming shift.
[2017-03-28 06:55] LABS: BASOPHILS % (AUTO) 0.2 % (0.0-2.0); EOSINOPHILS # (AUTO) 0.1 /CMM (0.0-0.7); EOSINOPHILS % (AUTO) 1.8 % (0.0-6.0); HEMATOCRIT 37 % (39-51); HEMOGLOBIN 12.1 g/dL (13.5-17.5); LYMPHOCYTES # (AUTO) 0.5 /CMM (0.8-4.8); LYMPHOCYTES % (AUTO) 7.4 % (20.0-44.0); MEAN CORPUSCULAR HEMOGLOBIN 31 PG (26.0-33.0); MEAN CORPUSCULAR HGB CONC 33 g/dl (31.0-36.0); MEAN CORPUSCULAR VOLUME 93 fL (80-96); MONOCYTES # (AUTO) 0.7 /CMM (0.1-1.30); MONOCYTES % (AUTO) 10.4 % (2.0-12.0); NEUTROPHILS # (AUTO) 5.6 /CMM (1.8-8.9); NEUTROPHILS % (AUTO) 80.2 % (43.0-81.0); PLATELET COUNT (AUTO) 116 /CMM (150-450); RDW COEFFICIENT OF VARIATION 14.4 (11.5-15.0); RED BLOOD CELL COUNT(AUTO) 3.96 MIL/uL (4.5-6.0)
[2017-03-28 07:15] LABS: CALCIUM, SERUM 8.8 mg/dL (8.5-10.1); CARBON DIOXIDE 36 mmol/L (21-32); CHLORIDE 102 mmol/L (98-107); GLUCOSE 100 mg/dL (74-106); MAGNESIUM 2.2 mg/dL (1.8-2.4); PHOSPHORUS 4.4 mg/dL (2.5-4.9); POTASSIUM 4.5 mmol/L (3.5-5.1); SODIUM SERUM 143 mmol/L (136-145); UREA NITROGEN, BLOOD 28 mg/dL (7-18)
--- NOTE | 2017-03-28 07:18 | NUR ---
PT RECVD HE IS AROUSABLE TO VERBAL STIMULI AT THIS TIME AND NODS HIS HEAD TO ANSWER QUESTIONS. PER PM SHIFT HE WAS LETHARGIC AND DIFFICULT TO AROUSE ON ADMISSION TO [facility]. CURRENTLY TOLERATING BIPAP, SPO2 RANGE IS 85-92. DR. BORRERO SPOKE WITH FAMILY EXTENSIVELY ABOUT HIS CODE STATUS AND CONFIRMS THAT THE PT REQUESTS FOR DNR/DNI. WILL CONTINUE TO MONITOR FOR ANY CHANGES IN MENTAL STATUS
[2017-03-28] MEDS: FUROSEMIDE 40 MG TABLET PO SCH (08:21)
[2017-03-28] MEDS: FINASTERIDE (5 MG) 5 MG TABLET PO SCH (08:21)
[2017-03-28] MEDS: SERTRALINE HCL 50 MG TABLET PO SCH (08:21)
[2017-03-28] MEDS: ASPIRIN 81 MG TAB.CHEW PO SCH (08:21)
[2017-03-28] MEDS: GABAPENTIN 300 MG CAPSULE PO SCH ×4 (08:21→21:32)
[2017-03-28] MEDS: ATORVASTATIN 40 MG TABLET PO SCH (08:21)
[2017-03-28] MEDS: BENAZEPRIL HCL 20 MG TABLET PO SCH ×2 (08:31→17:00)
[2017-03-28] MEDS: DOXAZOSIN MESYLATE (4 MG) 4 MG TABLET PO SCH (08:31)
[2017-03-28] MEDS: HYDROCODONE/APAP 5/325MG 1 EACH TABLET PO PRN ×4 (08:46→23:26)
--- NOTE | 2017-03-28 09:02 | NUR ---
RT RECD PT IN BIPAP AWAKE ORIENTED TOOK OFF BIPAP AND SWITCHED TO NASAL CANNULA 2L, [place], [place] GIVEN VIA MASK NO ADVERSE REACTION NOTED ATT Addendum: 03/28/17 at 0905 by MARLEEN ROCA RT Amended: Links added.
--- NOTE | 2017-03-28 09:19 | NUR ---
PT OFF BIPAP AT 0800, DR. HERNANDEZ ON THE UNIT TO SEE THE PT, ORDERS FOR A FOLLOW ABG NOW WHILE ON 3L NC AND HE WILL REVIEW AM CXR. PT IS ALERT ORIENTED FOLLOWS COMMANDS COOPERATIVE WITH CARE AT THIS TIME AND IS CONVERSING WITH FAMILY AT BEDSIDE.
--- NOTE | 2017-03-28 10:00 | NUR ---
RT ABG DONE INFORMED RN JOB WITH RESULTS, PT HAS NO INCREASE WOB, HE STATES THAT HE DSNT WANT TO GO ON BIPAP UNTIL NIGHT TIME, INCREASED O2 TO 5L NASAL CANNULA WITH HUMIDIFIER, SATS IMPROVED MINNA CONTINUE TO MONITOR AND TITRATE Addendum: 03/28/17 at 1220 by MARLEEN ROCA RT Amended: Links added.
[2017-03-28 10:16] LABS: ABG BASE EXCESS 11.4 mmol/L; ABG OXYGEN SATURATION 88.3 % (92.0-98.5); ABG PCO2 75.8 mmHg (35.0-45.0); ABG PH 7.343 (7.350-7.450); ABG PO2 56.8 mmHg (75.0-100.0); AaDO2 141.2 mmHg; COHb 0.9 % (0.5-1.5); MetHb 0.3 % (0.0-1.5); O2Hb 87.2 % (94.0-97.0); SITE, ABG Right Radial
--- NOTE | 2017-03-28 10:20 | NUR ---
DR. HERNANDEZ GIVEN ABG, ORDERS TO KEEP BIPAP PRN. PT CURRENTLY ON 5L NC WITH HUMIDIFIER IN PLACE. SATURATING 88-95%.
[2017-03-28] MEDS: ENOXAPARIN SODIUM 40 MG/0.4 ML DISP.SYRIN SQ SCH (10:31)
[2017-03-28] MEDS: ACETYLCYSTEINE 10% SOLN 400 MG/4 ML VIAL NEB SCH ×3 (11:30→22:59)
[2017-03-28] MEDS ORDERED: SYSTANE ULTRA OP PRN (13:30)
--- NOTE | 2017-03-28 19:45 | NUR ---
RN OPENING NOTES RECEIVED REPORT FROM DAYSHIFT RN. FOUND Pt AWAKE, RESTING IN BED. FAMILY VISITING AT BEDSIDE. NO S/S OF ACUTE DISTRESS OR SEVERE SOB NOTED. Pt IS A/OX4, VERBAL, ABLE TO MAKE NEEDS KNOWN. IV ACCESS ON R WRIST #18G, SL. SAFETY MEASURES IN PLACE. BED ALARM ON. BED LOW, LOCKED, HOB ELEVATED, SIDE RAILS UP, CALL LIGHT AND BEDSIDE TABLE WITHIN REACH. WILL CONTINUE TO MONITOR Pt THROUGHOUT THE NIGHT FOR SAFETY.
--- NOTE | 2017-03-28 23:38 | NUR ---
PLACED BIPAP AT NIGHT. PRADIP OJEDA NOTIFIED
[2017-03-29] VITALS (7 sets, daily range): BP systolic 112–145; BP diastolic 61–75
--- NOTE | 2017-03-29 03:07 | NUR ---
TOOK OFF BIPAP PER PT REQUEST. PLACED BACK ON 3L MN, PRADIP REID NOTIFIED.
[2017-03-29] MEDS: ALBUTEROL FS 2.5 MG/0.5 ML VIAL.NEB IH SCH ×6 (03:11→23:40)
[2017-03-29] MEDS: IPRATROPIUM NEB FS 0.5 MG/2.5 ML AMPUL.NEB IH SCH ×6 (03:12→23:40)
--- NOTE | 2017-03-29 06:45 | NUR ---
RN CLOSING NOTES NO SIGNIFICANT CHANGES NOTED DURING THE SHIFT. Pt REMAINS IN STABLE CONDITION. ON 3L NC 02 SAT STABLE ABOVE 90%. NO S/S OF ACUTE DISTRESS OR SEVERE SOB NOTED. ALL NEEDS MET AND ATTENDED TO. SAFETY MEASURES IN PLACE. WILL ENDORSE TO DAYSHIFT RN FOR Pt's ALESSANDRO.
--- NOTE | 2017-03-29 07:25 | NUR ---
RN INITIAL NOTES: PATIENT ALERT ORIENTED X4.NONLABORED BREATHING NOTED ON 3 L NASAL CANNULA. PATIENT DENIES PAIN AT THE MOMENT. IV SITE PATENT AND INTACT. BED IN LOWEST LOCKED POSITION. CALL LIGHT WITHIN REACH. WILL CONTINUE TO MONITOR
[2017-03-29] MEDS: ACETYLCYSTEINE 10% SOLN 400 MG/4 ML VIAL NEB SCH ×3 (07:54→23:40)
[2017-03-29] MEDS: GABAPENTIN 300 MG CAPSULE PO SCH ×4 (08:44→22:50)
[2017-03-29] MEDS: ATORVASTATIN 40 MG TABLET PO SCH (08:45)
[2017-03-29] MEDS: DOXAZOSIN MESYLATE (4 MG) 4 MG TABLET PO SCH (08:45)
[2017-03-29] MEDS: FUROSEMIDE 40 MG TABLET PO SCH (08:46)
[2017-03-29] MEDS: FINASTERIDE (5 MG) 5 MG TABLET PO SCH (08:46)
[2017-03-29] MEDS: SERTRALINE HCL 50 MG TABLET PO SCH (08:46)
[2017-03-29] MEDS: ASPIRIN 81 MG TAB.CHEW PO SCH (08:47)
[2017-03-29] MEDS: BENAZEPRIL HCL 20 MG TABLET PO SCH ×2 (09:50→16:38)
[2017-03-29] MEDS: ENOXAPARIN SODIUM 40 MG/0.4 ML DISP.SYRIN SQ SCH (09:54)
[2017-03-29] MEDS: HYDROCODONE/APAP 5/325MG 1 EACH TABLET PO PRN ×4 (10:43→23:05)
--- NOTE | 2017-03-29 19:30 | NUR ---
TELE/RN NOTES RECEIVED PATIENT IN STABLE CONDITION. AA&OX4. BREATHING EVENLY ON O2 2L VIA NC. NSR. IV HL. ABDOMINAL FOLD REDNESS WITH Z-GUARD. DENIES PAIN. PATIENT AND DAUGHTER MADE AWARE OF PLAN OF CARE AND VERBALIZED UNDERSTANDING. SKIN INTEGRITY MAINTAINED. BED AT LOWEST POSITION AND LOCKED, HOB ELEVATED, SRX4 UP, BEDSIDE TABLE AND CALL ALEXIS WITHIN REACH. WILL CONTINUE TO MONITOR. BED ALARM ON.
--- NOTE | 2017-03-29 19:57 | NUR ---
RN CLOSING NOTES: PATIENT ALERT ORIENTED X4.NONLABORED BREATHING NOTED ON 3 L NASAL CANNULA. PATIENT DENIES PAIN AT THE MOMENT. IV SITE PATENT AND INTACT. BED IN LOWEST LOCKED POSITION. CALL LIGHT WITHIN REACH. ENDORSED TO NEXT SHIFT
[2017-03-29] MEDS: TEMAZEPAM 15 MG CAPSULE PO PRN (23:30)
--- NOTE | 2017-03-29 23:40 | NUR ---
PLACED BIPAP AT NIGHT, WILL CONTINUE TO MONITOR THE PATIENT. PRADIP MONACO NOTIFIED
[2017-03-29] MEDS ORDERED: TEMAZEPAM 15 MG CAPSULE ONE (23:42)
[2017-03-30] VITALS: BP 113/66
[2017-03-30] MEDS: IPRATROPIUM NEB FS 0.5 MG/2.5 ML AMPUL.NEB IH SCH ×6 (03:28→23:04)
[2017-03-30] MEDS: ALBUTEROL FS 2.5 MG/0.5 ML VIAL.NEB IH SCH ×6 (03:28→23:04)
[2017-03-30 04:00] VITALS: BP 135/72
--- NOTE | 2017-03-30 06:45 | NUR ---
TELE/RN NOTES NO SIGNIFICANT CHANGES. EYES CLOSED AND CAN EASILY BE AWAKEN, ON CPAP WITH NO RESPIRATORY DISTRESS NOTED, SAT 98%. NO COMPLAINTS MADE. ALL NEEDS MET. BED AT LOWEST POSITION AND LOCKED, HOB ELEVATED, SRX4 UP, SIDE TABLE AND CALL ALEXIS WITHIN REACH. BED ALARM ON. WILL ENDORSED TO AM SHIFT FOR CONTINUITY OF CARE.
--- NOTE | 2017-03-30 07:05 | NUR ---
RN INITIAL NOTE PATIENT RECEIVED IN BED, RESTING. EASILY AROUSED. ALERT AND ORIENTED. ABLE TO MAKE NEEDS KNOWN. NO S/S OF PAIN OR DISCOMFORT. DENIES PAIN AT THIS TIME. RESPIRATIONS ARE EVEN AND UNLABORED. NO S/S OF RESPIRATORY DISTRESS OR SOB. SATING WELL ON ROOM AIR. SKIN IS WARM AND DRY TO TOUCH. IV SITE FLUSHED, PATENT. SAFETY PRECAUTIONS IMPLEMENTED, BED IN LOCKED, LOW POSITION WITH TWO SIDE RAILS UP. CALL LIGHT AND BELONGINGS WITHIN EASY REACH. WILL CONTINUE TO MONITOR.
[2017-03-30] MEDS: ACETYLCYSTEINE 10% SOLN 400 MG/4 ML VIAL NEB SCH ×3 (07:08→23:06)
[2017-03-30 08:00] VITALS: BP 144/75
[2017-03-30] MEDS: FINASTERIDE (5 MG) 5 MG TABLET PO SCH (08:35)
[2017-03-30] MEDS: ATORVASTATIN 40 MG TABLET PO SCH (08:35)
[2017-03-30] MEDS: GABAPENTIN 300 MG CAPSULE PO SCH ×4 (08:35→21:37)
[2017-03-30] MEDS: FUROSEMIDE 40 MG TABLET PO SCH (08:35)
[2017-03-30] MEDS: SERTRALINE HCL 50 MG TABLET PO SCH (08:36)
[2017-03-30] MEDS: DOXAZOSIN MESYLATE (4 MG) 4 MG TABLET PO SCH (08:36)
[2017-03-30] MEDS: BENAZEPRIL HCL 20 MG TABLET PO SCH ×2 (08:36→16:48)
[2017-03-30] MEDS: ASPIRIN 81 MG TAB.CHEW PO SCH (08:36)
[2017-03-30] MEDS: ENOXAPARIN SODIUM 40 MG/0.4 ML DISP.SYRIN SQ SCH (08:37)
[2017-03-30 09:12] LABS: ABG BASE EXCESS 11.6 mmol/L; ABG OXYGEN SATURATION 91.6 % (92.0-98.5); ABG PCO2 84.1 mmHg (35.0-45.0); ABG PH 7.308 (7.350-7.450); ABG PO2 64.2 mmHg (75.0-100.0); AaDO2 36.2 mmHg; COHb 0.9 % (0.5-1.5); MetHb 0.3 % (0.0-1.5); O2Hb 90.5 % (94.0-97.0); SITE, ABG Right Radial; VENT MODE, BG NC 3L
[2017-03-30] MEDS: methylPREDNISolone SOD SUCC 125 MG/2ML VIAL IV SCH ×2 (11:08→16:48)
[2017-03-30] MEDS: HYDROCODONE/APAP 5/325MG 1 EACH TABLET PO PRN ×3 (11:08→21:37)
[2017-03-30 12:00] VITALS: BP 158/85
[2017-03-30 16:00] VITALS: BP 128/65
--- NOTE | 2017-03-30 19:15 | NUR ---
RN INITIAL NOTES RECEIVED PATIENT IN BED, AWAKE AND ALERT WITH FAMILY AT BEDSIDE. PATIENT WITH NO DISTRESS AND NO C/O PAIN AND DISCOMFORT. PATIENT ON 2LPM OF O2 VIA NC, NO RESPIRATORY DISTRESS, SATURATION NOTED TO BE 94%, HOB ELEVATED TOLERATED. PATIENT IS SR WITH HR OF 95. R WRIST PIV, FLUSHED AND KEPT PATENT, ON SL. PATIENT'S NEEDS ANTICIPATED AND MET. SAFETY AND COMFORT ENSURED. BED IN LOW AND LOCKED POSITION. CALL LIGHT IN REACH. WILL MONITOR.
[2017-03-30 20:00] VITALS: BP 153/82
--- NOTE | 2017-03-30 21:03 | NUR ---
GAVE PT TX AND ASKED HIM TO GO ON BIPAP. REFUSED AND STATED HE WAS ALREADY ON BIPAP IN THE AFTERNOON Addendum: 03/30/17 at 2113 by MARLEEN ROCA RT Amended: Links added.
[2017-03-30] MEDS: TEMAZEPAM 15 MG CAPSULE PO PRN (23:57)
[2017-03-31] VITALS (7 sets, daily range): BP systolic 133–167; BP diastolic 69–83
--- NOTE | 2017-03-31 00:45 | NUR ---
RN NOTES PATIENT MEDICATED WITH TEMAZEPAM PER PATIENT'S REQUEST AT 2330, MEDICATION EFFECTIVE. PATIENT ALSO PLACED ON BIPAP, PATIENT WITH NO DISTRESS. REMAINS SR. TOLERATING BIPAP WELL.
[2017-03-31] MEDS: ALBUTEROL FS 2.5 MG/0.5 ML VIAL.NEB IH SCH ×6 (04:05→22:43)
[2017-03-31] MEDS: IPRATROPIUM NEB FS 0.5 MG/2.5 ML AMPUL.NEB IH SCH ×6 (04:05→22:43)
--- NOTE | 2017-03-31 06:20 | NUR ---
RN CLOSING NOTES PATIENT WITH NO DISTRESS AND CHANGE IN CONDITION OBSERVED OVERNIGHT. SLEEPING COMFORTABLY AT THIS TIME. STILL ON BIPAP WITH NO DISTRESS. PATIENT TURNED AND REPOSITIONED. KEPT CLEAN AND DRY. ALL DUE MEDS GIVEN ORDERED. AM LABS DRAWN. WILL ENDORSE ACCORDINGLY FOR CONTINUITY OF CARE.
[2017-03-31 06:53] LABS: EOSINOPHILS % (AUTO) 0.2 % (0.0-6.0); HEMATOCRIT 37 % (39-51); LYMPHOCYTES # (AUTO) 0.4 /CMM (0.8-4.8); LYMPHOCYTES % (AUTO) 8.3 % (20.0-44.0); MEAN CORPUSCULAR HEMOGLOBIN 30 PG (26.0-33.0); MEAN CORPUSCULAR HGB CONC 32 g/dl (31.0-36.0); MEAN CORPUSCULAR VOLUME 93 fL (80-96); MONOCYTES # (AUTO) 0.4 /CMM (0.1-1.30); MONOCYTES % (AUTO) 7.1 % (2.0-12.0); NEUTROPHILS # (AUTO) 4.6 /CMM (1.8-8.9); NEUTROPHILS % (AUTO) 84.4 % (43.0-81.0); PLATELET COUNT (AUTO) 179 /CMM (150-450); RED BLOOD CELL COUNT(AUTO) 3.97 MIL/uL (4.5-6.0); WHITE BLOOD COUNT (AUTO) 5.4 K/uL (4.3-11.0)
[2017-03-31 07:01] LABS: CHLORIDE 105 mmol/L (98-107); CREATININE 0.8 mg/dL (0.6-1.3); GLUCOSE 127 mg/dL (74-106); MAGNESIUM 2.3 mg/dL (1.8-2.4); PHOSPHORUS 3.4 mg/dL (2.5-4.9); POTASSIUM 5.2 mmol/L (3.5-5.1); SODIUM SERUM 147 mmol/L (136-145); UREA NITROGEN, BLOOD 25 mg/dL (7-18)
--- NOTE | 2017-03-31 07:10 | NUR ---
RN INITIAL NOTE PATIENT RECEIVED IN BED, RESTING. PATIENT IS EASILY AROUSED. PATIENT IS ALERT AND ORIENTED. NO S/S OF PAIN OR DISCOMFORT. DENIES PAIN AT THIS TIME. ABLE TO MAKE NEEDS KNOWN. SINUS RHYTHM ON TELE MONITOR. SKIN IS WARM AND DRY TO TOUCH. IV SITE FLUSHED, PATENT. SAFETY PRECAUTIONS IMPLEMENTED. BED IN LOCKED, LOW POSITION WITH TWO SIDE RAILS UP. CALL LIGHT AND BELONGINGS WITHIN EASY REACH. WILL CONTINUE TO MONITOR CLOSELY.
[2017-03-31 07:13] LABS: CARBON DIOXIDE 42 mmol/L (21-32)
[2017-03-31] MEDS: ACETYLCYSTEINE 10% SOLN 400 MG/4 ML VIAL NEB SCH ×3 (07:27→22:43)
[2017-03-31] MEDS: methylPREDNISolone SOD SUCC 125 MG/2ML VIAL IV SCH ×2 (08:07→16:30)
[2017-03-31] MEDS: BENAZEPRIL HCL 20 MG TABLET PO SCH ×2 (08:08→16:30)
[2017-03-31] MEDS: DOXAZOSIN MESYLATE (4 MG) 4 MG TABLET PO SCH (08:08)
[2017-03-31] MEDS: SERTRALINE HCL 50 MG TABLET PO SCH (08:08)
[2017-03-31] MEDS: GABAPENTIN 300 MG CAPSULE PO SCH ×4 (08:08→21:05)
[2017-03-31] MEDS: FUROSEMIDE 40 MG TABLET PO SCH (08:08)
[2017-03-31] MEDS: ASPIRIN 81 MG TAB.CHEW PO SCH (08:09)
[2017-03-31] MEDS: ATORVASTATIN 40 MG TABLET PO SCH (08:09)
[2017-03-31] MEDS: FINASTERIDE (5 MG) 5 MG TABLET PO SCH (08:14)
[2017-03-31] MEDS: HYDROCODONE/APAP 5/325MG 1 EACH TABLET PO PRN ×3 (08:14→21:05)
[2017-03-31] MEDS: ENOXAPARIN SODIUM 40 MG/0.4 ML DISP.SYRIN SQ SCH (08:15)
--- NOTE | 2017-03-31 14:00 | NUR ---
RN CLOSING NOTE CARRIED OUT ALL MD ORDERS. PATIENT KEPT CLEAN DRY, AND COMFORTABLE. GAVE REPORT TO LAMIN FOR ALESSANDRO.
--- NOTE | 2017-03-31 14:15 | NUR ---
RN NOTES RECEIVED REPORT FROM LYNN RN, PATIENT ALERT AND ORIENTED, NO S/SX OF DISTRESS AT THIS TIME. RELAYED LAB RESULTS TO DR. SOLIZ, NO NEW ORDER AT THIS TIME.
--- NOTE | 2017-03-31 18:41 | NUR ---
RN NOTES PATIENT ALERT AND ORIENTED X3, ABLE TO VERBALIZE NEEDS, NO S/SX OF RESPIRATORY DISTRESS OBSERVED, ON O2 AT 2LPM VIA NC WITH SPO2 OF 92-93%, BREATHING EVEN AND UNLABORED, SEEN AND EVALUATED BY PT, ALL NEEDS ATTENDED AND MET, SKIN CARE RENDERED, TURNED AND REPOSITIONED Q2HRS AND PRN, ADL CARE PROVIDED, SAFETY MEASURES IN PLACED, CALL LIGHT WITHIN REACH, WILL ENDORSE TO PL SQL PROGRAMMER FOR ALESSANDRO.
--- NOTE | 2017-03-31 19:15 | NUR ---
RN INITIAL NOTES RECEIVED PATIENT IN BED, AWAKE AND ALERT WITH FAMILY AT BEDSIDE. PATIENT WITH NO DISTRESS AND NO C/O PAIN AND DISCOMFORT. PATIENT ON 2LPM OF O2 VIA NC, NO RESPIRATORY DISTRESS. PATIENT IS SR WITH HR OF 85. R WRIST PIV, FLUSHED AND KEPT PATENT, ON SL. PATIENT'S NEEDS ANTICIPATED AND MET. SAFETY AND COMFORT ENSURED. BED IN LOW AND LOCKED POSITION. CALL LIGHT IN REACH. WILL MONITOR
[2017-03-31] MEDS: TEMAZEPAM 15 MG CAPSULE PO PRN (22:10)
[2017-04-01] VITALS: BP 117/72
[2017-04-01] MEDS: ALBUTEROL FS 2.5 MG/0.5 ML VIAL.NEB IH SCH ×6 (02:27→23:54)
[2017-04-01] MEDS: IPRATROPIUM NEB FS 0.5 MG/2.5 ML AMPUL.NEB IH SCH ×6 (02:27→23:54)
[2017-04-01 04:00] VITALS: BP_SYST 125; BP_SYST 140; BP_DIAS 72; BP_DIAS 79
[2017-04-01 08:00] VITALS: BP_SYST 138; BP_SYST 85; BP_DIAS 82
[2017-04-01] MEDS: ACETYLCYSTEINE 10% SOLN 400 MG/4 ML VIAL NEB SCH ×3 (08:17→23:55)
--- NOTE | 2017-04-01 08:18 | NUR ---
DIESEL ENGINE ERECTOR INITIAL NOTE PATIENT RECEIVED IN BED, RESTING. PATIENT IS EASILY AROUSED. ON CIPAP. NO S/S OF PAIN OR DISCOMFORT. NO PAIN EXPRESSED AT THIS TIME. PT ABLE TO MAKE NEEDS KNOWN. ON TELE -SINUS RHYTHM . PT SKIN IS WARM AND DRY TO TOUCH. IV SITE FLUSHED, PATENT. SAFETY PRECAUTIONS IN PLACE. BED IN LOWEST AND LOCKED POSITION WITH TWO SIDE RAILS UP. CALL LIGHT AND BELONGINGS WITHIN EASY REACH. RN WILL CONTINUE TO MONITOR CLOSELY THROUGHOUT THE DAY .
[2017-04-01] MEDS: methylPREDNISolone SOD SUCC 125 MG/2ML VIAL IV SCH (09:12)
[2017-04-01] MEDS: DOXAZOSIN MESYLATE (4 MG) 4 MG TABLET PO SCH (09:12)
[2017-04-01] MEDS: GABAPENTIN 300 MG CAPSULE PO SCH ×4 (09:12→21:25)
[2017-04-01] MEDS: BENAZEPRIL HCL 20 MG TABLET PO SCH ×2 (09:13→16:38)
[2017-04-01] MEDS: FINASTERIDE (5 MG) 5 MG TABLET PO SCH (09:13)
[2017-04-01] MEDS: FUROSEMIDE 40 MG TABLET PO SCH (09:13)
[2017-04-01] MEDS: ASPIRIN 81 MG TAB.CHEW PO SCH (09:13)
[2017-04-01] MEDS: ATORVASTATIN 40 MG TABLET PO SCH (09:13)
[2017-04-01] MEDS: SERTRALINE HCL 50 MG TABLET PO SCH (09:13)
[2017-04-01] MEDS: HYDROCODONE/APAP 5/325MG 1 EACH TABLET PO PRN ×2 (09:17→21:26)
[2017-04-01] MEDS: ENOXAPARIN SODIUM 40 MG/0.4 ML DISP.SYRIN SQ SCH (09:24)
[2017-04-01 12:00] VITALS: BP 136/81
--- NOTE | 2017-04-01 15:31 | NUR ---
Rn note Rn gave report to daysorft nurse Johanna in regards to plan of care. day shift rn late administration of gabapentin due to patients request rn endorsed further care.
[2017-04-01 16:00] VITALS: BP 140/79
--- NOTE | 2017-04-01 19:25 | NUR ---
TELE/RN NOTES RECEIVED PT. LYING IN BED. AWAKE, ALERT AND ORIENTED X3. BREATHING EVEN AND UNLABORED ON 2LPM O2 VIA NC. NO SOB, RESPIRATORY DISTRESS OR COMPLAINTS OF PAIN NOTED AT THIS TIME. PT. WITH EXTERNAL RAILCAR SWITCHER PRESENT AND INTACT. CURRENT RHYTHM = SINUS RHYTHM HR 97. PT. WITH RIGHT WRIST 18 GAUGE IV SALINE LOCK PRESENT, PATENT AND INTACT. PT. WITH FAMILY MEMBERS PRESENT AT BEDSIDE. BED LOCKED AND IN LOWEST POSITION, SIDE RAILS UP X3, CALL LIGHT WITHIN REACH, WILL CONTINUE TO MONITOR.
--- NOTE | 2017-04-01 19:37 | NUR ---
END OF SHIFT PATIENT STABLE, NO ACUTE CHANGES. DENIES PAIN. VERBALIZING NEEDS. BREATHING STABLE. CALL LIGHT IN REACH. INFORMED NIGHT NURSE.
[2017-04-01 20:00] VITALS: BP 122/64
[2017-04-01] MEDS: TEMAZEPAM 15 MG CAPSULE PO PRN (22:59)
[2017-04-02] VITALS (8 sets, daily range): BP systolic 116–143; BP diastolic 58–85
[2017-04-02] MEDS: ALBUTEROL FS 2.5 MG/0.5 ML VIAL.NEB IH SCH ×6 (02:49→22:44)
[2017-04-02] MEDS: IPRATROPIUM NEB FS 0.5 MG/2.5 ML AMPUL.NEB IH SCH ×6 (02:49→22:44)
--- NOTE | 2017-04-02 03:29 | NUR ---
TELE/RN NOTES PT. REMOVED HIS BIPAP. PT. STATES HE DOES NOT WANT THE BIPAP ON ANYMORE TONIGHT. PLACED PT. BACK ON 2LPM O2 VIA NC. PT. BREATHING EVEN AND UNLABORED. NO SOB OR RESPIRATORY DISTRESS NOTED AT THIS TIME. WILL CONTINUE TO MONITOR.
--- NOTE | 2017-04-02 05:16 | NUR ---
RT PT OFF BIPAP, PER PRADIP ARAGON INFORMED CHARGED NURSE, PT TOOK OFF BIPAP HIMSELF, AWAKE ALERT SP02 97% rr20 hr 84 Addendum: 04/02/17 at 0519 by MARLEEN ROCA RT Amended: Links added.
[2017-04-02 06:18] LABS: BASOPHILS % (AUTO) 0.5 % (0.0-2.0); EOSINOPHILS # (AUTO) 0.1 /CMM (0.0-0.7); EOSINOPHILS % (AUTO) 1.4 % (0.0-6.0); HEMATOCRIT 37 % (39-51); HEMOGLOBIN 12.1 g/dL (13.5-17.5); LYMPHOCYTES % (AUTO) 11.7 % (20.0-44.0); MEAN CORPUSCULAR HEMOGLOBIN 31 PG (26.0-33.0); MEAN CORPUSCULAR HGB CONC 33 g/dl (31.0-36.0); MEAN CORPUSCULAR VOLUME 93 fL (80-96); MONOCYTES # (AUTO) 0.8 /CMM (0.1-1.30); MONOCYTES % (AUTO) 9.6 % (2.0-12.0); NEUTROPHILS # (AUTO) 6.3 /CMM (1.8-8.9); NEUTROPHILS % (AUTO) 76.8 % (43.0-81.0); PLATELET COUNT (AUTO) 207 /CMM (150-450); RDW COEFFICIENT OF VARIATION 13.9 (11.5-15.0); RED BLOOD CELL COUNT(AUTO) 3.97 MIL/uL (4.5-6.0); WHITE BLOOD COUNT (AUTO) 8.2 K/uL (4.3-11.0)
[2017-04-02 06:33] LABS: CALCIUM, SERUM 8.7 mg/dL (8.5-10.1); CHLORIDE 102 mmol/L (98-107); CREATININE 0.8 mg/dL (0.6-1.3); GLUCOSE 89 mg/dL (74-106); MAGNESIUM 2.2 mg/dL (1.8-2.4); PHOSPHORUS 3.9 mg/dL (2.5-4.9); POTASSIUM 4.1 mmol/L (3.5-5.1); SODIUM SERUM 144 mmol/L (136-145); UREA NITROGEN, BLOOD 29 mg/dL (7-18)
[2017-04-02 06:36] LABS: CARBON DIOXIDE 43 mmol/L (21-32)
--- NOTE | 2017-04-02 06:50 | NUR ---
TELE/RN NOTES PT. IS LYING IN BED RESTING. BREATHING EVEN AND UNLABORED ON 2LPM O2 VIA NC. NO SOB, RESPIRATORY DISTRESS OR COMPLAINTS OF PAIN NOTED AT THIS TIME. PT. WITH RIGHT WRIST 18 GAUGE IV SALINE LOCK PRESENT, PATENT AND INTACT. ALL PT. NEEDS MET. ASSISTED PT. WITH TURNING AND REPOSITIONING Q2H AND NEEDED. BED LOCKED AND IN LOWEST POSITION, SIDE RAILS UP X3, CALL LIGHT WITHIN REACH, WILL ENDORSE TO DAYSHIFT NURSE FOR CONTINUITY OF CARE.
--- NOTE | 2017-04-02 07:35 | NUR ---
TAX EXPERT OPENING NOTE PATIENT IS ALERT AND ORIENTED x4. NO PAIN AT THIS TIME. NO FACIAL GRIMACING NOTED FOR PAIN. NO SOB OR DISTRESS NOTED. ON 2L/MIN OF OXYGEN VIA NASAL CANNULA, TOLERATING WELL. TELE-SINUS RHYTHM AT 89. BEDREST, WOUND TREATMENT TO BE DONE THROUGHOUT SHIFT. CARDIAC DIET, TOLERATING WELL, NEEDS ASSISTANCE WITH FEEDER. LABS AND ABG TO BE DONE THIS MORNING. NO ISOLATION, NO KNOWN ALLERGIES. USES BIPAP AT NIGHT. RIGHT WRIST IV INTACT AND PATENT NO REDNESS OR SWELLING NOTED, FLUSHES WELL. WILL CONTINUE TO MONITOR THROUGHOUT SHIFT
[2017-04-02] MEDS: ACETYLCYSTEINE 10% SOLN 400 MG/4 ML VIAL NEB SCH ×3 (08:00→22:44)
[2017-04-02] MEDS: SERTRALINE HCL 50 MG TABLET PO SCH (08:17)
[2017-04-02] MEDS: DOXAZOSIN MESYLATE (4 MG) 4 MG TABLET PO SCH (08:17)
[2017-04-02] MEDS: ATORVASTATIN 40 MG TABLET PO SCH (08:17)
[2017-04-02] MEDS: GABAPENTIN 300 MG CAPSULE PO SCH ×4 (08:18→22:06)
[2017-04-02] MEDS: FINASTERIDE (5 MG) 5 MG TABLET PO SCH (08:18)
[2017-04-02] MEDS: FUROSEMIDE 40 MG TABLET PO SCH (08:18)
[2017-04-02] MEDS: BENAZEPRIL HCL 20 MG TABLET PO SCH ×2 (08:18→16:45)
[2017-04-02] MEDS: ASPIRIN 81 MG TAB.CHEW PO SCH (08:18)
[2017-04-02] MEDS: ENOXAPARIN SODIUM 40 MG/0.4 ML DISP.SYRIN SQ SCH (08:24)
--- NOTE | 2017-04-02 14:36 | NUR ---
SECURITY TECHNICIAN NOTE WHEN DOING 2 PM ROUNDS, PATIENT INFORMED ME THAT THIS MORNING AROUND 0300 HE HAD TAKEN OFF HIS UPPER DENTURES AND WRAPPED IT IN TISSUE TO LAY ON BEDSIDE TABLE. UPON DOING ROUNDS THIS MORNING, NO DENTURES WERE NOTED ON THE BEDSIDE TABLE. I ASKED OVERHAULER BUS TRUCK IF SHE HAD SEEN DENTURES WHEN DOING ROUND AND FEEDING PATIENT FOR BREAKFAST AND LUNCH AND ALSO SAID SHE DID NOT SEE THEM. LOOKED ON BELONGINGS LIST AND DID NOT SEE ANY DENTURES MARKED OFF. NOTIFIED CHARGE NURSE ABOUT MISSING UPPER DENTURES, I ALSO CALLED BENITA, THE DAUGHTER TO ASK IF THEY POSSIBLY TOOK DENTURE HOME AND SHE ALSO DENIED THAT SHE HAD TAKEN THEM HOME BUT THAT HER DAD DID MENTION TO HER THAT UPPER DENTURE WAS MISSING. I LOOKED IN ALL PLACES IN PATIENT'S ROOM, STILL NOT FOUND. WILL CONTINUE TO SEARCH FOR THEM AND WILL INFORM CHARGE NURSE AND DAUGHTER IF FOUND.
[2017-04-02 15:18] LABS: ABG BASE EXCESS 18.4 mmol/L; ABG OXYGEN SATURATION 95.1 % (92.0-98.5); ABG PCO2 77.8 mmHg (35.0-45.0); ABG PO2 81.6 mmHg (75.0-100.0); AaDO2 26.2 mmHg; COHb 0.3 % (0.5-1.5); MetHb 0.7 % (0.0-1.5); O2Hb 94.1 % (94.0-97.0); SITE, ABG Left Radial; VENT MODE, BG Nasal Cannula
[2017-04-02] MEDS: HYDROCODONE/APAP 5/325MG 1 EACH TABLET PO PRN ×2 (16:47→22:17)
--- NOTE | 2017-04-02 18:31 | NUR ---
TELEPHONE ASSEMBLER CLOSING NOTE PATIENT IS ALERT AND ORIENTED x4. PATIENT STATES 4/10 GENERALIZED PAIN, PAIN MEDICATION GIVEN. WILL REASSESS. ON 2L/MIN OF OXYGEN VIA NASAL CANNULA TOLERATING WELL NO DISTRESS NOTED. CALL LIGHT WITHIN REACH, SAFETY MEASURES IMPLEMENTED. ABLE TO COMMUNICATE NEEDS. BEDREST, ABLE TO HELP REPOSITION. HAD THREE BM'S TODAY. TELE- SR- 85. CARDIAC DIET, REQUIRES FEEDER. ABDOMINAL REDNESS TREATMENT DONE. HAS BMP, MAG, PHOS TOMORROW FOR LABS. REPEAT CHEST X-RAY AND DAILY ABG'S PER MD. CHARGE NURSE INFORMED ME THAT SHE CALLED [facility]A LEE IN REGARDS TO DENTURES, PER RN COLORECTAL SURGEON CASE MANAGEMENT IS NOT AVAILABLE TODAY AND TO HAVE NURSE CALL TOMORROW TO SPEAK WITH CASE MANAGEMENT TO ACQUIRE INFORMATION ABOUT UPPER DENTURE. CHARGE NURSE AND DAUGHTER ARE BOTH INFORMED ABOUT MISSING DENTURE, WILL NOTIFY PHARMACOVIGILANCE SCIENTIST NURSE ABOUT MISSING DENTURE TO KEEP AN EYE ON IT. ALL DUE MEDICATIONS GIVEN ORDERED. ALL NURSING CARE NEEDS ATTENDED TO. RIGHT WRIST 18G INTACT AND PATENT, NO REDNESS OR SWELLING NOTED, FLUSHES WELL. WILL ENDORSE TO PHARMACOVIGILANCE SCIENTIST NURSE FOR ALESSANDRO
[2017-04-02] MEDS: TEMAZEPAM 15 MG CAPSULE PO PRN (22:17)
[2017-04-03] VITALS: BP 119/70
[2017-04-03] MEDS: IPRATROPIUM NEB FS 0.5 MG/2.5 ML AMPUL.NEB IH SCH ×6 (02:42→23:29)
[2017-04-03] MEDS: ALBUTEROL FS 2.5 MG/0.5 ML VIAL.NEB IH SCH ×6 (02:42→23:29)
[2017-04-03 04:00] VITALS: BP 127/84
[2017-04-03 06:54] LABS: CALCIUM, SERUM 8.6 mg/dL (8.5-10.1); CHLORIDE 100 mmol/L (98-107); CREATININE 0.8 mg/dL (0.6-1.3); GLUCOSE 89 mg/dL (74-106); MAGNESIUM 2.2 mg/dL (1.8-2.4); PHOSPHORUS 4.2 mg/dL (2.5-4.9); POTASSIUM 4.1 mmol/L (3.5-5.1); SODIUM SERUM 145 mmol/L (136-145); UREA NITROGEN, BLOOD 27 mg/dL (7-18)
--- NOTE | 2017-04-03 07:10 | NUR ---
RN NOTE RECEIVED PT ON BED, ON BIPAP AT THIS TIME , SLEEPING WELL , NO SOB NOTED , O2 SAT 95%, ON TELE SR HR IN 70'S ,O2 SAT 96%, NO DISTRESS NOTED , RIGHT WRIST IV SITE INTACT AND PATENT NO REDNESS OR SWELLING NOTED, FLUSHES WELL. SR UP x3, CALL LIGHT WITHIN EASY REACH, BED LOCKED AND IN LOWEST POSITION , WILL CONTINUE TO MONITOR PT CLSOELY .
[2017-04-03] MEDS: ACETYLCYSTEINE 10% SOLN 400 MG/4 ML VIAL NEB SCH ×3 (07:27→23:29)
[2017-04-03 07:39] LABS: CARBON DIOXIDE 43 mmol/L (21-32)
[2017-04-03 08:00] VITALS: BP 159/97
[2017-04-03] MEDS: HYDROCODONE/APAP 5/325MG 1 EACH TABLET PO PRN ×3 (08:24→21:58)
[2017-04-03] MEDS: ASPIRIN 81 MG TAB.CHEW PO SCH (08:25)
[2017-04-03] MEDS: ATORVASTATIN 40 MG TABLET PO SCH (08:25)
[2017-04-03] MEDS: SERTRALINE HCL 50 MG TABLET PO SCH (08:25)
[2017-04-03] MEDS: DOXAZOSIN MESYLATE (4 MG) 4 MG TABLET PO SCH (08:25)
[2017-04-03] MEDS: GABAPENTIN 300 MG CAPSULE PO SCH ×4 (08:26→21:58)
[2017-04-03] MEDS: BENAZEPRIL HCL 20 MG TABLET PO SCH ×2 (08:26→16:40)
[2017-04-03] MEDS: FUROSEMIDE 40 MG TABLET PO SCH (08:26)
[2017-04-03] MEDS: FINASTERIDE (5 MG) 5 MG TABLET PO SCH (08:26)
[2017-04-03] MEDS: ENOXAPARIN SODIUM 40 MG/0.4 ML DISP.SYRIN SQ SCH (08:27)
[2017-04-03 08:55] LABS: ABG BASE EXCESS 16.4 mmol/L; ABG OXYGEN SATURATION 91.3 % (92.0-98.5); ABG PCO2 74.1 mmHg (35.0-45.0); ABG PH 7.401 (7.350-7.450); ABG PO2 62.9 mmHg (75.0-100.0); COHb 0.6 % (0.5-1.5); MetHb 0.3 % (0.0-1.5); O2Hb 90.5 % (94.0-97.0); SITE, ABG Left Radial; VENT MODE, BG 3L NC
--- NOTE | 2017-04-03 12:22 | NUR ---
RT INCREASE O2 TO 3L NC DUE TO LOW PA02 IN ABG
[2017-04-03 16:00] VITALS: BP 116/64
--- NOTE | 2017-04-03 18:00 | NUR ---
RN NOTES PT STABLE, ON O2 AT 3L N/C , O2 SAT 93%, DAVI ANY DISTRESS , MEDICATED PER MD ORDER , SR UP x3, CALL LIGHT WITHIN EASY REACH, WILL ENDOSE TO BUYER LIAISON NURSE FOR ALESSANDRO.
--- NOTE | 2017-04-03 19:30 | NUR ---
RN NOTE RECEIVED PT ON BED, ALERT AND ORIENTED .NO SOB NOTED , O2 SAT 95%. RECEIVING O2 @ 3L VIA NASAL CANNULA. NO DISTRESS NOTED , RIGHT WRIST IV SITE INTACT AND PATENT NO REDNESS OR SWELLING NOTED, FLUSHES WELL. SR UP x3, CALL LIGHT WITHIN EASY REACH, BED LOCKED AND IN LOWEST POSITION , WILL CONTINUE TO MONITOR PT CLOSELY.
[2017-04-03 20:00] VITALS: BP 116/64
[2017-04-03] MEDS: TEMAZEPAM 15 MG CAPSULE PO PRN (22:13)
--- NOTE | 2017-04-03 22:16 | NUR ---
PLACED PT ON BIPAP , NO RESPIRATORY DISTRESS AT THIS TIME. WILL CONTINUE TO MONITOR THE PT. PRADIP COTTON NOTIFIED
[2017-04-04] VITALS (8 sets, daily range): BP systolic 116–155; BP diastolic 64–91
[2017-04-04] MEDS: IPRATROPIUM NEB FS 0.5 MG/2.5 ML AMPUL.NEB IH SCH ×6 (03:48→23:02)
[2017-04-04] MEDS: ALBUTEROL FS 2.5 MG/0.5 ML VIAL.NEB IH SCH ×6 (03:48→23:03)
--- NOTE | 2017-04-04 06:11 | NUR ---
MS RN NOTE PATIENT STABLE. SLEEPING AT THIS TIME. NO RESPIRATORY DISTRESS NOTED. ALL NEEDS MET AND ATTENDED DO. WILL ENDORSE TO DAY SHIFT FOR ALESSANDRO.
[2017-04-04 06:45] LABS: BASOPHILS % (AUTO) 0.3 % (0.0-2.0); EOSINOPHILS # (AUTO) 0.4 /CMM (0.0-0.7); EOSINOPHILS % (AUTO) 5.2 % (0.0-6.0); HEMATOCRIT 41 % (39-51); HEMOGLOBIN 13.3 g/dL (13.5-17.5); LYMPHOCYTES # (AUTO) 1.2 /CMM (0.8-4.8); LYMPHOCYTES % (AUTO) 17.4 % (20.0-44.0); MEAN CORPUSCULAR HEMOGLOBIN 30 PG (26.0-33.0); MEAN CORPUSCULAR HGB CONC 32 g/dl (31.0-36.0); MEAN CORPUSCULAR VOLUME 93 fL (80-96); MONOCYTES # (AUTO) 0.6 /CMM (0.1-1.30); MONOCYTES % (AUTO) 7.9 % (2.0-12.0); NEUTROPHILS # (AUTO) 4.8 /CMM (1.8-8.9); NEUTROPHILS % (AUTO) 69.2 % (43.0-81.0); PLATELET COUNT (AUTO) 199 /CMM (150-450); RDW COEFFICIENT OF VARIATION 13.9 (11.5-15.0); RED BLOOD CELL COUNT(AUTO) 4.44 MIL/uL (4.5-6.0); WHITE BLOOD COUNT (AUTO) 6.9 K/uL (4.3-11.0)
[2017-04-04 07:09] LABS: CALCIUM, SERUM 9.2 mg/dL (8.5-10.1); CHLORIDE 99 mmol/L (98-107); CREATININE 0.9 mg/dL (0.6-1.3); GLUCOSE 100 mg/dL (74-106); MAGNESIUM 2.4 mg/dL (1.8-2.4); PHOSPHORUS 4.1 mg/dL (2.5-4.9); POTASSIUM 4.1 mmol/L (3.5-5.1); SODIUM SERUM 143 mmol/L (136-145); UREA NITROGEN, BLOOD 26 mg/dL (7-18)
--- NOTE | 2017-04-04 07:10 | NUR ---
RN NOTE RECEIVED PT ON BED, A/Ox3, RESPIRATION EVEN AND UNLABORED , NO SOB NOTED, ON 0 3L N/C , O2 SAT 93%, , NO DISTRESS NOTED , RIGHT WRIST IV SITE G 18 CDI, FLUSHES WELL. SR UP x3, CALL LIGHT WITHIN EASY REACH, BED LOCKED AND IN LOWEST POSITION , WILL CONTINUE TO MONITOR PT CLOSELY.
[2017-04-04] MEDS: FINASTERIDE (5 MG) 5 MG TABLET PO SCH (08:08)
[2017-04-04] MEDS: ATORVASTATIN 40 MG TABLET PO SCH (08:08)
[2017-04-04] MEDS: FUROSEMIDE 40 MG TABLET PO SCH (08:08)
[2017-04-04] MEDS: DOXAZOSIN MESYLATE (4 MG) 4 MG TABLET PO SCH (08:10)
[2017-04-04] MEDS: SERTRALINE HCL 50 MG TABLET PO SCH (08:10)
[2017-04-04] MEDS: BENAZEPRIL HCL 20 MG TABLET PO SCH ×2 (08:10→16:57)
[2017-04-04] MEDS: ENOXAPARIN SODIUM 40 MG/0.4 ML DISP.SYRIN SQ SCH (08:11)
[2017-04-04] MEDS: GABAPENTIN 300 MG CAPSULE PO SCH ×4 (08:11→22:00)
[2017-04-04] MEDS: ASPIRIN 81 MG TAB.CHEW PO SCH (08:12)
[2017-04-04] MEDS: ACETYLCYSTEINE 10% SOLN 400 MG/4 ML VIAL NEB SCH ×3 (08:14→23:02)
[2017-04-04] MEDS: HYDROCODONE/APAP 5/325MG 1 EACH TABLET PO PRN ×3 (08:17→22:01)
[2017-04-04 08:26] LABS: CARBON DIOXIDE 40 mmol/L (21-32)
--- NOTE | 2017-04-04 16:00 | NUR ---
RN NOTES [facility] HAS NO BIPAP AND BARIATRIC BED AVAILABLE FOR THE PT . CM NOTIFIED , UNABLE TO TRANSFER PT OT [place] AT THIS TIME ,
--- NOTE | 2017-04-04 18:43 | NUR ---
RN NOTES PT REMAINS THE SAME , RESPIRATION EVEN AND UNLABORED ON 3L 02 N/C , NO DISTRESS NOTED, SR UP x3, CALL LIGHT WITHIN EASY REACH, WILL ENDORSE TO TRAFFIC DIVISION COMMANDING OFFICER NURSE FOR ALESSANDRO .
[2017-04-04] MEDS: TEMAZEPAM 15 MG CAPSULE PO PRN (22:00)
--- NOTE | 2017-04-04 23:03 | NUR ---
PLACED PT ON BIPAP, NO RESPIRATORY DISTRESS NOTED AT THIS TIME. PRADIP YHDE NOTIFIED.
[2017-04-05] MEDS: IPRATROPIUM NEB FS 0.5 MG/2.5 ML AMPUL.NEB IH SCH ×6 (03:54→23:39)
[2017-04-05] MEDS: ALBUTEROL FS 2.5 MG/0.5 ML VIAL.NEB IH SCH ×6 (03:54→23:39)
[2017-04-05 04:00] VITALS: BP 130/87
--- NOTE | 2017-04-05 07:05 | NUR ---
RN INITIAL NOTE PATIENT RECEIVED IN BED RESTING. AWAKE, ALERT AND ORIENTED. PRIMARILY FRENCH SPEAKING. ABLE TO MAKE NEEDS KNOWN. NO S/S OF PAIN OR DISCOMFORT. DENIES PAIN AT THIS TIME. RESPIRATIONS ARE EVEN AND UNLABORED. NO S/S OF RESPIRATORY DISTRESS OR SOB. SATING WELL ON 3L NASAL CANULA. SKIN IS WARM AND DRY TO TOUCH. IV SITE FLUSHED, PATENT. SAFETY PRECAUTIONS IMPLEMENTED, BED IN LOCKED, LOW POSITION WITH TWO SIDE RAILS UP. CALL LIGHT AND BELONGINGS WITHIN EASY REACH. WILL CONTINUE TO MONITOR.
[2017-04-05 08:00] VITALS: BP 121/64
[2017-04-05] MEDS: ACETYLCYSTEINE 10% SOLN 400 MG/4 ML VIAL NEB SCH ×3 (08:28→23:39)
[2017-04-05] MEDS: SERTRALINE HCL 50 MG TABLET PO SCH (08:52)
[2017-04-05] MEDS: GABAPENTIN 300 MG CAPSULE PO SCH ×4 (08:52→20:44)
[2017-04-05] MEDS: BENAZEPRIL HCL 20 MG TABLET PO SCH ×2 (08:52→16:06)
[2017-04-05] MEDS: DOXAZOSIN MESYLATE (4 MG) 4 MG TABLET PO SCH (08:52)
[2017-04-05] MEDS: FINASTERIDE (5 MG) 5 MG TABLET PO SCH (08:53)
[2017-04-05] MEDS: FUROSEMIDE 40 MG TABLET PO SCH (08:53)
[2017-04-05] MEDS: ATORVASTATIN 40 MG TABLET PO SCH (08:53)
[2017-04-05] MEDS: ASPIRIN 81 MG TAB.CHEW PO SCH (08:53)
[2017-04-05] MEDS: HYDROCODONE/APAP 5/325MG 1 EACH TABLET PO PRN ×3 (08:53→22:43)
[2017-04-05] MEDS: ENOXAPARIN SODIUM 40 MG/0.4 ML DISP.SYRIN SQ SCH (09:12)
--- NOTE | 2017-04-05 13:14 | NUR ---
RN NOTE CALLED DAUGHTER BENITA AND INFORMED HER THAT DENTURES WHICH WERE ACCIDENTALLY THROWN AWAY WILL NOT BE REPLACED BY [facility]. I APOLOGIZED. DAUGHTER MADE AWARE.
[2017-04-05 16:00] VITALS: BP 120/69
--- NOTE | 2017-04-05 18:55 | NUR ---
RN CLOSING NOTE CARRIED OUT ALL MD ORDERS, ANTICIPATED PATIENTS NEEDS. KEPT PATIENT CLEAN AND DRY. SAFETY PRECAUTIONS IN PLACE AT ALL TIMES. I WILL GIVE REPORT TO PM RN FOR ALESSANDRO.
--- NOTE | 2017-04-05 19:45 | NUR ---
RN OPENING NOTES RECEIVED REPORT FROM DAYSHIFT RN. FOUND Pt ASLEEP, RESTING IN BED. NO S/S OF ACUTE DISTRESS OR SEVERE SOB NOTED. EQUAL CHEST RISE AND FALL. NO C/O PAIN AT THIS TIME. Pt IS VERBAL AND ABLE TO MAKE NEEDS KNOWN. SAFETY MEASURES IN PLACE. BED LOW, LOCKED, HOB ELEVATED, SIDE RAILS UP. CALL LIGHT AND BEDSIDE TABLE WITHIN REACH. WILL CONTINUE TO MONITOR Pt THROUGHOUT THE NIGHT FOR SAFETY.
--- NOTE | 2017-04-05 19:50 | NUR ---
RN MS INITIAL NOTE PT RECEIVED IN NO ACUTE DISTRESS AT THIS TIME. A/O X3 ABLE TO MAKE NEEDS KNOWN. HAS RIGHT WRIST 18G THAT IS CLEAN DRY AND INTACT. VITALS WNL. BREATHING PATTERN IS NORMAL WITH ADEQUATE CHEST RISE/FALL. WILL ENSURE COMFORT AND SAFETY MEASURES. WILL CONTINUE TO MONITOR FOR ANY CHANGES DURING THE SHIFT.
[2017-04-05 20:00] VITALS: BP 111/57
--- NOTE | 2017-04-05 20:13 | NUR ---
RN NOTES ENDORSED Pt TO NIGHT RNCHRISTINA FOR Pt's ALESSANDRO.
[2017-04-05] MEDS: TEMAZEPAM 15 MG CAPSULE PO PRN (22:44)
[2017-04-06] MEDS: IPRATROPIUM NEB FS 0.5 MG/2.5 ML AMPUL.NEB IH SCH ×4 (03:44→15:04)
[2017-04-06] MEDS: ALBUTEROL FS 2.5 MG/0.5 ML VIAL.NEB IH SCH ×4 (03:44→15:04)
[2017-04-06 04:00] VITALS: BP 100/65
[2017-04-06] MEDS: HYDROCODONE/APAP 5/325MG 1 EACH TABLET PO PRN ×3 (05:58→15:07)
--- NOTE | 2017-04-06 07:30 | NUR ---
MS/RN Patient received Patient received from features reporter. Bi pap removed already by RT, saturation on 3l >94%, no distress noted. Call light within reach, all needs attended, will continue to monitor and endorse to features reporter.
[2017-04-06] MEDS: ACETYLCYSTEINE 10% SOLN 400 MG/4 ML VIAL NEB SCH ×2 (07:32→15:04)
[2017-04-06 08:00] VITALS: BP 100/60
[2017-04-06] MEDS: DOXAZOSIN MESYLATE (4 MG) 4 MG TABLET PO SCH (09:00)
[2017-04-06] MEDS: BENAZEPRIL HCL 20 MG TABLET PO SCH (09:00)
[2017-04-06] MEDS: ATORVASTATIN 40 MG TABLET PO SCH (09:06)
[2017-04-06] MEDS: GABAPENTIN 300 MG CAPSULE PO SCH ×2 (09:06→12:53)
[2017-04-06] MEDS: SERTRALINE HCL 50 MG TABLET PO SCH (09:07)
[2017-04-06] MEDS: FINASTERIDE (5 MG) 5 MG TABLET PO SCH (09:07)
[2017-04-06] MEDS: ASPIRIN 81 MG TAB.CHEW PO SCH (09:07)
[2017-04-06] MEDS: FUROSEMIDE 40 MG TABLET PO SCH (09:07)
[2017-04-06] MEDS: ENOXAPARIN SODIUM 40 MG/0.4 ML DISP.SYRIN SQ SCH (09:11)
--- NOTE | 2017-04-06 09:19 | NUR ---
MS/RN Medications Morning medications administered as ordered, blood pressure medications held due to hypotension.
--- NOTE | 2017-04-06 11:09 | NUR ---
MS/RN Pain Complaining of generalized pain 01/05. Mystic one tablet administered, will monitor effectiveness.
--- NOTE | 2017-04-06 12:30 | NUR ---
MS/RN S/B Dr Moore Seen by Dr Moore - patient to be discharged back to facility today once bipap machine is available.
[2017-04-06 16:00] VITALS: BP 147/78
--- NOTE | 2017-04-06 17:46 | NUR ---
MS/operator catalyst concentration Patient discharged in stable condition to [facility], report called to Cecille . All personal belongings signed for on belongings list. Exit care completed, patient asked that daughter Negra ([phone]) be call and given all discharge instructions as his nicaraguan was not very good. Advised that an private tutors and teachers could be provided but asking that daughter be called. Report given to paramedics, left facility in good condition.
== END 2017-04-06 17:31 | DRG 133 ==
LOC: ER 18:25 → ICU 20:04 → TELE-TD 03-28 00:11 → TELE1 03-28 13:06 → MEDSG1 04-03 10:50
PROVIDERS: ADMIT Family Medicine; ATTEND Family Medicine
PROC: 5A09357 Assistance with Respiratory Ventilation, Less than 24 Consecutive Hours, Continuous Positive Airway Pressure (ICD-10-PCS; principal; 2017-03-27)
DX: J96.21 Acute and chronic respiratory failure with hypoxia (principal); G93.41 Metabolic encephalopathy; D68.69 Other thrombophilia; R53.2 Functional quadriplegia; E66.2 Morbid (severe) obesity with alveolar hypoventilation; Z68.43 Body mass index [BMI] 50.0-59.9, adult; D63.8 Anemia in other chronic diseases classified elsewhere; E78.5 Hyperlipidemia, unspecified; F32.9 Major depressive disorder, single episode, unspecified; I10 Essential (primary) hypertension; J96.22 Acute and chronic respiratory failure with hypercapnia; Z66 Do not resuscitate; Z82.3 Family history of stroke; Z86.73 Personal history of transient ischemic attack (TIA), and cerebral infarction without residual deficits; Z87.891 Personal history of nicotine dependence; N40.0 Benign prostatic hyperplasia without lower urinary tract symptoms; R79.89 Other specified abnormal findings of blood chemistry; G47.33 Obstructive sleep apnea (adult) (pediatric)
CPT/HCPCS: 36415; 36600; 71010-TC; 80048-TC; 82803-TC; 83735-TC; 84100-TC; 84484-TC; 85025-TC; 85730-TC; 87081-TC; 94660; 97110-TC; 97112-TC; 97530-TC; A4606; A6403; J1650; J2930; J3490; Z7610

== ENCOUNTER 2017-05-18 19:13 | Inpatient (IN) | payer OTHER, MEDICARE ==
[2017-05-18] VITALS (9 sets, daily range): BP systolic 69–114; BP diastolic 39–62
[~2017-05-18] VITALS: Ht 182.9 cm; Wt 130.6 kg
[~2017-05-18 19:13] MED LIST changes: +ALBU2.5V13 IH; -ALBU2.5V13 NEB; +ASPI-1169 PO; -ASPI81TA2 PO; +IPRA0.2S9 IH; -IPRA0.2S9 NEB
--- NOTE | 2017-05-18 19:23 | NUR ---
[id number] FR [facility] FOR AMS W/ LOW O2 SAT 86% ON RA, PLACED ON NRB W/ BG 170 IN FIELD. PT AOX3 RR EVEN AND UNLABORED. NO SOB NOTED AT THIS TIME. PT PLACED ON NON REBREATHER PER RA. NO NVD A THIS TIME. PT GOWNED AND PLACED ON MONITOR. DR. NORWOOD AT BEDSIDE FOR EVAL.
[2017-05-18 19:26] LABS: BASOPHILS # (AUTO) 0.1 /CMM (0.0-0.2); BASOPHILS % (AUTO) 0.6 % (0.0-2.0); EOSINOPHILS # (AUTO) 0.1 /CMM (0.0-0.7); EOSINOPHILS % (AUTO) 0.6 % (0.0-6.0); HEMATOCRIT 36 % (39-51); HEMOGLOBIN 11.9 g/dL (13.5-17.5); LYMPHOCYTES # (AUTO) 0.9 /CMM (0.8-4.8); LYMPHOCYTES % (AUTO) 8.3 % (20.0-44.0); MEAN CORPUSCULAR HEMOGLOBIN 30 PG (26.0-33.0); MEAN CORPUSCULAR HGB CONC 33 g/dl (31.0-36.0); MEAN CORPUSCULAR VOLUME 93 fL (80-96); MONOCYTES # (AUTO) 0.9 /CMM (0.1-1.30); NEUTROPHILS # (AUTO) 8.7 /CMM (1.8-8.9); NEUTROPHILS % (AUTO) 82.5 % (43.0-81.0); PLATELET COUNT (AUTO) 141 /CMM (150-450); RDW COEFFICIENT OF VARIATION 14.7 (11.5-15.0); RED BLOOD CELL COUNT(AUTO) 3.92 MIL/uL (4.5-6.0); WHITE BLOOD COUNT (AUTO) 10.7 K/uL (4.3-11.0)
[2017-05-18] MEDS ORDERED: LIDOCAINE 2% JEL UROJET 10 ML MM ONE ×2 (19:39→20:30)
[2017-05-18 19:40] LABS: INR 0.94 (0.87-1.13); PROTHROMBIN TIME 9.8 SECS (9.5-12.7)
[2017-05-18 19:43] LABS: ALANINE AMINOTRANSFERASE 16 U/L (12-78); ALBUMIN 3.1 g/dL (3.4-5.0); ALKALINE PHOSPHATASE 65 U/L (46-116); ASPARTATE AMINOTRANSFERASE 16 U/L (15-37); BILIRUBIN,DIRECT 0.1 mg/dL (0.0-0.2); BILIRUBIN,TOTAL 0.4 mg/dL (0.2-1.0); CALCIUM, SERUM 9.1 mg/dL (8.5-10.1); CHLORIDE 99 mmol/L (98-107); GLUCOSE 136 mg/dL (74-106); POTASSIUM 4.8 mmol/L (3.5-5.1); SODIUM SERUM 140 mmol/L (136-145); TOTAL PROTEIN, SERUM 7.2 g/dL (6.4-8.2); UREA NITROGEN, BLOOD 18 mg/dL (7-18)
[2017-05-18 19:46] LABS: TROPONIN I < 0.017 ng/mL (0.00-0.056)
--- NOTE | 2017-05-18 19:50 | NUR ---
URINE COLLECTED. CALLED LAB FOR EQUIPMENT OILER.
[2017-05-18 19:52] LABS: BAND % (MANUAL) 8 % (0.0-5.0); LYMPHOCYTES % (MANUAL) 8 % (16-48); MONOCYTES % (MANUAL) 10 % (0-11.0); NEUTROPHILS % (MANUAL) 74 (42-76)
[2017-05-18] MEDS ORDERED: LEVOFLOXACIN 750 MG /D5W 150ML 150 ML IV ONE ×2 (20:00→21:46)
[2017-05-18] MEDS ORDERED: VANCOMYCIN 1 GM in IV D5W 250 ML IV ONE (20:00)
[2017-05-18] MEDS ORDERED: PIPERACILLIN /TAZOBACTAM 3.375 G in IV D5W 50 ML IV ONE (20:00)
[2017-05-18 20:02] LABS: APPEARANCE,URINE Clear (CLEAR); BILIRUBIN,URINE Negative (NEGATIVE); BLOOD, URINE Negative Ery/uL (NEGATIVE); COLOR,URINE Yellow (YELLOW); KETONES,URINE Negative (NEGATIVE); LEUKOCYTE ESTERASE ,URINE Negative (NEGATIVE); NITRITE, URINE Negative (NEGATIVE); PROTEIN,URINE Negative (NEGATIVE); UGLUCOSE Negative (NEGATIVE); UROBILINOGEN,URINE 0.2 EU/dL (0.2)
[2017-05-18 20:07] LABS: CARBON DIOXIDE 47 mmol/L (21-32)
[2017-05-18] MEDS ORDERED: PIPERACILLIN /TAZOBACTAM 3.375 G VIAL IV ONE (20:19)
--- NOTE | 2017-05-18 20:27 | NUR ---
PT PLACED ON BIPAP PER MD. RT AT BEDSIDE, SETTIN/8 BACK RATE 12 FI02 70%
[2017-05-18] MEDS ORDERED: VANCOMYCIN 1 GM VIAL ONE (20:40)
--- NOTE | 2017-05-18 20:52 | NUR ---
PT RECEIVED THROUGH ER DUE TO SOB. PT PLACED ON BIPAP PER MD NORWOOD FOLLOWING ABG. PT APPEARS TO BE TOLERATING WELL, BS CRACKLES ON RIGHT SIDE. PT NOW SAT WELL. NO CURRENT SOB NOT AT THIS TIME. Addendum: 05/18/17 at 2053 by COLIN GARCIA RT Amended: Links added.
[2017-05-18 20:57] LABS: ABG BASE EXCESS 11.5 mmol/L; ABG OXYGEN SATURATION 86.2 % (92.0-98.5); ABG PCO2 97.3 mmHg (35.0-45.0); ABG PH 7.255 (7.350-7.450); ABG PO2 55.2 mmHg (75.0-100.0); AaDO2 118.1 mmHg; COHb 1.2 % (0.5-1.5); MetHb 0.4 % (0.0-1.5); O2Hb 84.8 % (94.0-97.0); SITE, ABG Left Radial; VENT MODE, BG NASAL CANNULA
--- NOTE | 2017-05-18 21:12 | NUR ---
DR. SHETH AT BEDSIDE FOR EVAL.
--- NOTE | 2017-05-18 21:14 | NUR ---
ICU 254
--- NOTE | 2017-05-18 21:31 | NUR ---
REPORT GIVEN TO PRADIP BOWSER FOR ICU BED 254
--- NOTE | 2017-05-18 21:55 | NUR ---
ICU/RN- ADMITTED THIS 71 Y/O MALE FROM ER PAR ACLS PROTOCOL. NURSING FOCUS:ALTERED RESPIRATORY STATUS R/T DIAGNOSIS:ACUTE HYPERCAPNIC RESPIRATORY FAILURE. ROUTINE ICU ADMISSION CARE INITIATED. PT. IS LETHARGIC , AROUSABLE, FOLLOWS SIMPLE COMMANDS,RIGHT UPPER EXTREMITY SEVERELY WEAK, RIGHT LOWER EXTREMITY IS FLACCID, LEFT SIDE IS WNL.ON NRB AND IMMEDIATELY HOOKED UP TO BIPAP BY RT W/ INITIAL SETTINGS OF I/E-18/8, R-12, FIO2-70%. EKG SR W/ HR-92, BP-107/64.DENIES PAIN OR DISCOMFORT.PT. WITH ABDOMINAL FOLD EXCORIATION, WASHED W/ SOAP AND WATER. PAT DRY W/ TOWEL, Z GUARD APPLIED TO AREA. WILL CONSULT WOUND NURSE. AFEBRILE.
--- NOTE | 2017-05-18 21:58 | NUR ---
PT TRASNFERRED TO ICU 254 PER ACLS PROTOCOL.
[2017-05-18] MEDS ORDERED: IPRATROPIUM NEB FS 0.5 MG/2.5 ML AMPUL.NEB NEB PRN (22:00)
[2017-05-18] MEDS ORDERED: ZOLPIDEM TARTRATE 5 MG TABLET PO PRN (22:00)
[2017-05-18] MEDS ORDERED: VANCOMYCIN 1 GM in IV D5W 250 ML IV SCH (22:00)
[2017-05-18] MEDS ORDERED: MAGNESIUM HYDROXIDE 30 ML UDC PO PRN (22:00)
[2017-05-18] MEDS ORDERED: ALBUTEROL FS 2.5 MG/0.5 ML VIAL.NEB NEB PRN (22:00)
[2017-05-18] MEDS ORDERED: Z GUARD REMEDY 2 OZ OINT TP PRN (22:00)
[2017-05-18] MEDS ORDERED: MAG HYDROX/AL HYDROX/SIMETH 30 ML UDC PO PRN (22:00)
[2017-05-18] MEDS ORDERED: ONDANSETRON HCL/PF 4 MG/2 ML VIAL IVP PRN (22:00)
[2017-05-18] MEDS ORDERED: ACETAMINOPHEN 325 MG TABLET PO PRN (22:00)
[2017-05-18] MEDS ORDERED: HYDROCODONE/APAP 5/325MG 1 EACH TABLET PO PRN (22:00)
--- NOTE | 2017-05-18 22:40 | NUR ---
ICU/RN- DAUGHTER HERE TO SEE PT. ALL QUESTIONS AND PLAN OF CARE EXPLAINED TO SAME. VERBALIZED UNDERSTANDING.
--- NOTE | 2017-05-18 22:53 | NUR ---
ICU/RN-PT. IS A "DNR,DNI" STATUS PER POL. SPOKE TO DAUGHTER WHO IS IN AGREEMENT. DR. SAM. Patino NOTIFIED BY PHONE W/ ORDER FOR "DNR, DNI" CODE STATUS .
[2017-05-18] MEDS ORDERED: IV NS 0.9% 500 ML IV ONE (23:00)
--- NOTE | 2017-05-18 23:13 | NUR ---
ICU/RN-PT. BP-66/40, HR-85, NS 500ML IV BOLUS GIVEN PER DR. DOMENIC FRANCIS
[2017-05-18] MEDS ORDERED: methylPREDNISolone SOD SUCC 125 MG/2ML VIAL ONE (23:42)
[2017-05-18] MEDS: methylPREDNISolone SOD SUCC 125 MG/2ML VIAL IV SCH (23:45)
[2017-05-19] VITALS (72 sets, daily range): BP systolic 46–198; BP diastolic 23–138
--- NOTE | 2017-05-19 | NUR ---
ICU/RN- LATEST BP-97/53, HR-84/MIN.
--- NOTE | 2017-05-19 00:05 | NUR ---
SENIOR MECHANICAL PROJECT ENGINEER INITIAL NOTE RECEIVED REPORT FROM HOME [place]. PT IN BED, AWAKE, ABLE TO FOLLOW COMMANDS. ON BIPAP, TOLERATING CURRENT SETTINGS 18/8. RATE 12 FIO2 70%. LUNG SOUNDS DIMINISHED. BOWEL SOUNDS PRESENT. IV PATENT AND INTACT. ATTEMPTED MAYO INSERTION BUT WAS UNSUCCESSFUL, WILL REATTEMPT LATER. REPOSITIONED FOR COMFORT. WILL CONTINUE TO CLOSELY MONITOR. BP STABLE AT THIS TIME.
[2017-05-19] MEDS ORDERED: methylPREDNISolone SOD SUCC 125 MG/2ML VIAL ONE (03:01)
[2017-05-19] MEDS ORDERED: PIPERACILLIN /TAZOBACTAM 2.25 G VIAL IV ONE (03:03)
[2017-05-19] MEDS ORDERED: PIPERACILLIN /TAZOBACTAM 4.5 G in IV D5W 50 ML IV SCH (05:00)
[2017-05-19 05:22] LABS: EOSINOPHILS % (AUTO) 0.1 % (0.0-6.0); HEMATOCRIT 39 % (39-51); HEMOGLOBIN 12.2 g/dL (13.5-17.5); LYMPHOCYTES # (AUTO) 0.3 /CMM (0.8-4.8); LYMPHOCYTES % (AUTO) 3.1 % (20.0-44.0); MEAN CORPUSCULAR HEMOGLOBIN 30 PG (26.0-33.0); MEAN CORPUSCULAR HGB CONC 31 g/dl (31.0-36.0); MEAN CORPUSCULAR VOLUME 96 fL (80-96); MONOCYTES # (AUTO) 0.5 /CMM (0.1-1.30); MONOCYTES % (AUTO) 4.6 % (2.0-12.0); NEUTROPHILS # (AUTO) 10.4 /CMM (1.8-8.9); NEUTROPHILS % (AUTO) 92.2 % (43.0-81.0); PLATELET COUNT (AUTO) 129 /CMM (150-450); RDW COEFFICIENT OF VARIATION 15.4 (11.5-15.0); RED BLOOD CELL COUNT(AUTO) 4.07 MIL/uL (4.5-6.0); WHITE BLOOD COUNT (AUTO) 11.3 K/uL (4.3-11.0)
[2017-05-19 05:38] LABS: B-TYPE NATRIURETIC PEPTIDE 53 PG/ML (0-125); CALCIUM, SERUM 9.2 mg/dL (8.5-10.1); CHLORIDE 99 mmol/L (98-107); GLUCOSE 117 mg/dL (74-106); MAGNESIUM 1.9 mg/dL (1.8-2.4); PHOSPHORUS 3.5 mg/dL (2.5-4.9); POTASSIUM 4.6 mmol/L (3.5-5.1); SODIUM SERUM 141 mmol/L (136-145); UREA NITROGEN, BLOOD 21 mg/dL (7-18)
[2017-05-19 05:41] LABS: CHOLESTEROL 140 mg/dL (<200); HDL CHOLESTEROL 86 mg/dL (40-60); LDL 54 mg/dL (0-99); THYROID STIMULATING HORMONE 0.328 uIU/mL (0.358-3.74); TRIGLYCERIDES 51 mg/dL (30-150)
[2017-05-19 05:56] LABS: CARBON DIOXIDE 42 mmol/L (21-32)
[2017-05-19] MEDS: methylPREDNISolone SOD SUCC 125 MG/2ML VIAL IV SCH ×4 (06:06→23:38)
[2017-05-19 06:13] LABS: BAND % (MANUAL) 10 % (0.0-5.0); LYMPHOCYTES % (MANUAL) 5 % (16-48); MONOCYTES % (MANUAL) 3 % (0-11.0); NEUTROPHILS % (MANUAL) 82 (42-76)
--- NOTE | 2017-05-19 07:36 | NUR ---
COMMERCIAL COORDINATOR RECEIVED PATIENT FROM THE PREVIOUS SHIFT. PATIENT IS IN BED. RESTING COMFORTABLY. NO ACUTE DISTRESS NOTED. BIPAP SETTINGS REVIEWED AND VERIFIED. AFEBRILE. SINUS TACH ON MONITOR. BP MONITORED. ABLE TO VERBALIZE NEEDS. WILL CONTINUE TO MONITOR AND PROVIDE CARE.
--- NOTE | 2017-05-19 08:21 | NUR ---
WOUND CARE CONSULT: PT PRESENTS WITH RT SIDED WEAKNESS, ABDOMINAL FOLD REDNESS WITH SLIGHT EXCORIATION, PRESENT ON ADMISSION. SACRAL SCARRING NOTED. ALL SKIN PROTECTION MEASURES IN PLACE AND DISCUSSED WITH NURSING STAFF. BARIMAX II BED ORDERED. WILL SEE PRN. LION IN AGREEMENT WITH PLAN OF CARE. Addendum: 05/19/17 at 0822 by KARLA SALINAS WNDNU Amended: Links added.
--- NOTE | 2017-05-19 08:26 | NUR ---
pt. received on bipap and placed on 15 lpm o2 flow via non-rebreather. Addendum: 05/19/17 at 0828 by BETTY RICE RT Amended: Links added.
--- NOTE | 2017-05-19 08:29 | NUR ---
downgrade to 6 lpm o2 flow via nasal cannula. Addendum: 05/19/17 at 0829 by BETTY RICE RT Amended: Links added.
[2017-05-19] MEDS ORDERED: FEE PK DOSING 1 MIN EA MC ONE (08:48)
[2017-05-19] MEDS: Z GUARD REMEDY 2 OZ OINT TP SCH (09:21)
[2017-05-19] MEDS: ATORVASTATIN 40 MG TABLET PO SCH (09:27)
[2017-05-19] MEDS: ASPIRIN 81 MG TAB.CHEW PO SCH (09:27)
[2017-05-19] MEDS: GABAPENTIN 400 MG CAPSULE PO SCH ×4 (09:27→22:04)
[2017-05-19] MEDS: SERTRALINE HCL 50 MG TABLET PO SCH (09:27)
[2017-05-19] MEDS: FINASTERIDE (5 MG) 5 MG TABLET PO SCH (09:27)
[2017-05-19] MEDS: VANCOMYCIN 1.25 GM in IV D5W 500 ML IV SCH ×2 (09:28→22:04)
[2017-05-19] MEDS: ENOXAPARIN SODIUM 40 MG/0.4 ML DISP.SYRIN SQ SCH (09:29)
[2017-05-19 10:37] LABS: ABG BASE EXCESS 12.4 mmol/L; ABG PCO2 87.8 mmHg (35.0-45.0); ABG PO2 72.8 mmHg (75.0-100.0); AaDO2 104.1 mmHg; COHb 0.6 % (0.5-1.5); MetHb 0.5 % (0.0-1.5); SITE, ABG Right Radial; VENT MODE, BG N/C 39%
[2017-05-19 12:29] LABS: ABG OXYGEN SATURATION 92.5 % (92.0-98.5); ABG PCO2 77.8 mmHg (35.0-45.0); ABG PH 7.367 (7.350-7.450); ABG PO2 62.3 mmHg (75.0-100.0); AaDO2 45.5 mmHg; COHb 0.8 % (0.5-1.5); MetHb 0.2 % (0.0-1.5); O2Hb 91.6 % (94.0-97.0); SITE, ABG Right Radial; VENT MODE, BG N/C
[2017-05-19] MEDS: PIPERACILLIN /TAZOBACTAM 3.375 G in IV D5W 50 ML IV SCH ×3 (12:31→23:38)
[2017-05-19] MEDS: ACETYLCYSTEINE 10% SOLN 400 MG/4 ML VIAL NEB SCH ×2 (16:12→23:21)
[2017-05-19] MEDS: IPRATROPIUM NEB FS 0.5 MG/2.5 ML AMPUL.NEB NEB SCH ×2 (16:12→19:37)
[2017-05-19] MEDS ORDERED: VANCOMYCIN 1.25 GM in IV D5W 500 ML IV SCH (21:00)
--- NOTE | 2017-05-19 21:00 | NUR ---
GRAPHIC COORDINATOR - REC'D PT. ON BIG BOY BED, REMOVING O2 SAT MONITOR. PT. REC'D COMP. BEDBATH DUE TO FECAL INC. PT.IS ON O2/2L/NC W/O2 SATS LOW 90'S-HIGH 80'S. WHEEZES & CRACKLES AUSC. ORAL TEMP AT 99.6. PT. HAS RT. SIDED DEFICIT. RUE MIDLINE & RT.HAND PIV'S HAVE ALL PORTS PATENT TO FLUSH. PT.IS DIAPTERED. + FEEDER. HEART MONITOR SHOWS SR/ST. SBP'S ARE LABILE: TEENS TO 170'S. PT. IS A KOSOVAN SPEAKING OBESE GENTLEMAN-UNDERSTANDS LITTLE PERSIAN. CONT.POC.
--- NOTE | 2017-05-19 23:10 | NUR ---
HOGSHEAD LINER - ORDERS TO TX PT. TO IFEOMA - BED #111. PHONE REPORT ENDORSED TO JULIENNE CURTIS CONT. POC. Addendum: 05/20/17 at 0029 by MIMI RASHEED RN PT'S CELL PHONE & RED BLANKET WAS TRANSFERRED W/PT. CONT.POC.
[2017-05-20] VITALS (9 sets, daily range): BP systolic 108–149; BP diastolic 60–90
--- NOTE | 2017-05-20 00:52 | NUR ---
RN:TD: PT RECEIVED FROM ICU ON 2 L NC. PT FREE OF DISTRESS. PT INCONTINENT OF URINE AND STOOL. COMPLETE BED BATH PROVIDED. WILL CONTINUE TO MONITOR CLOSELY. VSS.
[2017-05-20] MEDS: IPRATROPIUM NEB FS 0.5 MG/2.5 ML AMPUL.NEB NEB SCH ×4 (00:53→19:31)
[2017-05-20] MEDS: PIPERACILLIN /TAZOBACTAM 3.375 G in IV D5W 50 ML IV SCH ×4 (05:04→23:59)
[2017-05-20] MEDS: methylPREDNISolone SOD SUCC 125 MG/2ML VIAL IV SCH ×4 (05:04→23:59)
[2017-05-20] MEDS: ACETYLCYSTEINE 10% SOLN 400 MG/4 ML VIAL NEB SCH ×3 (07:35→23:21)
--- NOTE | 2017-05-20 08:03 | NUR ---
RN IFEOMA: pt.is A/Ox2, can follow simple commands, no pain, no c/o now, no SOB, SR, SBP over 100, RT is in room/updated
--- NOTE | 2017-05-20 08:07 | NUR ---
RN IFEOMA: 2L n/c, O2sat. 90-91%, increased O2 to 4L n/c, continue monitoring
[2017-05-20 08:12] LABS: HEMATOCRIT 34 % (39-51); HEMOGLOBIN 10.9 g/dL (13.5-17.5); LYMPHOCYTES # (AUTO) 0.5 /CMM (0.8-4.8); LYMPHOCYTES % (AUTO) 4.6 % (20.0-44.0); MEAN CORPUSCULAR HEMOGLOBIN 30 PG (26.0-33.0); MEAN CORPUSCULAR HGB CONC 32 g/dl (31.0-36.0); MEAN CORPUSCULAR VOLUME 94 fL (80-96); MONOCYTES # (AUTO) 0.4 /CMM (0.1-1.30); MONOCYTES % (AUTO) 3.4 % (2.0-12.0); PLATELET COUNT (AUTO) 136 /CMM (150-450); RDW COEFFICIENT OF VARIATION 14.9 (11.5-15.0); WHITE BLOOD COUNT (AUTO) 10.8 K/uL (4.3-11.0)
--- NOTE | 2017-05-20 08:40 | NUR ---
RN IFEOMA: pt.is getting RespTx, feels better, RT updated with orders/pt.condition, SR, O2 sat. now 91-93%
[2017-05-20 08:45] LABS: CALCIUM, SERUM 9.3 mg/dL (8.5-10.1); CHLORIDE 97 mmol/L (98-107); GLUCOSE 136 mg/dL (74-106); MAGNESIUM 2.1 mg/dL (1.8-2.4); PHOSPHORUS 2.2 mg/dL (2.5-4.9); POTASSIUM 4.1 mmol/L (3.5-5.1); SODIUM SERUM 140 mmol/L (136-145); UREA NITROGEN, BLOOD 24 mg/dL (7-18)
[2017-05-20 08:50] LABS: CARBON DIOXIDE 42 mmol/L (21-32)
[2017-05-20] MEDS: ENOXAPARIN SODIUM 40 MG/0.4 ML DISP.SYRIN SQ SCH (09:15)
[2017-05-20] MEDS: ATORVASTATIN 40 MG TABLET PO SCH (09:16)
[2017-05-20] MEDS: FINASTERIDE (5 MG) 5 MG TABLET PO SCH (09:16)
[2017-05-20] MEDS: GABAPENTIN 400 MG CAPSULE PO SCH ×4 (09:16→21:21)
[2017-05-20] MEDS: SERTRALINE HCL 50 MG TABLET PO SCH (09:16)
[2017-05-20] MEDS: ASPIRIN 81 MG TAB.CHEW PO SCH (09:16)
[2017-05-20] MEDS: Z GUARD REMEDY 2 OZ OINT TP SCH (09:21)
[2017-05-20] MEDS: VANCOMYCIN 1.25 GM in IV D5W 500 ML IV SCH ×2 (09:23→20:57)
--- NOTE | 2017-05-20 10:00 | NUR ---
RN IFEOMA: pt.is A/Ox2, needy, SR, O2 sat. 92-94% on 4L n/c, no SOB, no any pain now
[2017-05-20] MEDS ORDERED: K PHOS NEUTRAL 250 MG TABLET PO ONE (16:30)
--- NOTE | 2017-05-20 17:15 | NUR ---
RN IFEOAM: pt.daughter came in/updated/translated, said pt.had hallucination episode yesterday and today, notified/ordered consult, charge nurse updated, O2sat. 94%, SR, SBP WNL, no any psych meds, can follow commands well, PM/skin care done, will notify next nurse for injury precaution, charge nurse called to psych unit re new consult order
--- NOTE | 2017-05-20 23:23 | NUR ---
PT PLACED ON NOC BIPAP. RN NOTIFIED.
[2017-05-21] VITALS: BP 117/56
[2017-05-21] MEDS: IPRATROPIUM NEB FS 0.5 MG/2.5 ML AMPUL.NEB NEB SCH ×4 (01:10→20:08)
[2017-05-21 04:00] VITALS: BP 137/77
[2017-05-21] MEDS: methylPREDNISolone SOD SUCC 125 MG/2ML VIAL IV SCH (05:05)
[2017-05-21] MEDS: PIPERACILLIN /TAZOBACTAM 3.375 G in IV D5W 50 ML IV SCH ×3 (05:05→17:20)
--- NOTE | 2017-05-21 05:47 | NUR ---
TAKEN OFF BIPAP. PLACED ON NC 3L. RN NOTIFIED.
[2017-05-21 07:04] LABS: HEMATOCRIT 36 % (39-51); HEMOGLOBIN 11.6 g/dL (13.5-17.5); LYMPHOCYTES # (AUTO) 0.5 /CMM (0.8-4.8); MEAN CORPUSCULAR HEMOGLOBIN 30 PG (26.0-33.0); MEAN CORPUSCULAR HGB CONC 32 g/dl (31.0-36.0); MEAN CORPUSCULAR VOLUME 93 fL (80-96); MONOCYTES # (AUTO) 0.4 /CMM (0.1-1.30); NEUTROPHILS # (AUTO) 7.8 /CMM (1.8-8.9); PLATELET COUNT (AUTO) 139 /CMM (150-450); RDW COEFFICIENT OF VARIATION 15.2 (11.5-15.0); RED BLOOD CELL COUNT(AUTO) 3.85 MIL/uL (4.5-6.0); WHITE BLOOD COUNT (AUTO) 8.8 K/uL (4.3-11.0)
[2017-05-21 07:39] LABS: CALCIUM, SERUM 9.5 mg/dL (8.5-10.1); CHLORIDE 98 mmol/L (98-107); CREATININE 0.9 mg/dL (0.6-1.3); GLUCOSE 143 mg/dL (74-106); MAGNESIUM 2.3 mg/dL (1.8-2.4); PHOSPHORUS 3.7 mg/dL (2.5-4.9); POTASSIUM 4.2 mmol/L (3.5-5.1); SODIUM SERUM 140 mmol/L (136-145); UREA NITROGEN, BLOOD 26 mg/dL (7-18)
[2017-05-21 07:43] LABS: CARBON DIOXIDE 41 mmol/L (21-32)
[2017-05-21] MEDS: ACETYLCYSTEINE 10% SOLN 400 MG/4 ML VIAL NEB SCH ×3 (07:51→23:30)
[2017-05-21 08:00] VITALS: BP 149/80
--- NOTE | 2017-05-21 08:00 | NUR ---
TD/RN AM SHIFT INITIAL NOTES RECEIVED PT AWAKE IN BED, PT A/O X 2, NO ACUTE CHANGE OF CONDITION NOTED. PT DENIES ANY SYMPTOMS. ON 3L O2 VIA N/C SATURATING @ 97%, LUNG SOUNDS DIMINISHED. ON TELE WITH SINUS RHYTHM, HR 75. MIDLINE ON TKO PATENT WITH NO S/S OF INFECTION. PT IS COMFORTABLE AT THIS TIME. SCHEDULED AM MEDS TO BE GIVEN. CL WITHIN REACHED AND SAFETY MAINTAINED. ON GOING MONITORING.
[2017-05-21] MEDS: VANCOMYCIN 1.25 GM in IV D5W 500 ML IV SCH ×2 (09:45→21:15)
[2017-05-21] MEDS: ENOXAPARIN SODIUM 40 MG/0.4 ML DISP.SYRIN SQ SCH (09:46)
[2017-05-21] MEDS: ASPIRIN 81 MG TAB.CHEW PO SCH (09:47)
[2017-05-21] MEDS: SERTRALINE HCL 50 MG TABLET PO SCH (09:47)
[2017-05-21] MEDS: ATORVASTATIN 40 MG TABLET PO SCH (09:47)
[2017-05-21] MEDS: LACTOBACILLUS RHAMNOSUS GG 1 EACH CAP.SPRINK PO SCH ×2 (09:47→17:19)
[2017-05-21] MEDS: Z GUARD REMEDY 2 OZ OINT TP SCH (09:47)
[2017-05-21] MEDS: FINASTERIDE (5 MG) 5 MG TABLET PO SCH (09:47)
[2017-05-21] MEDS: GABAPENTIN 300 MG CAPSULE PO SCH ×4 (09:52→21:06)
[2017-05-21 12:00] VITALS: BP_SYST 129; BP_DIAS 70; BP_DIAS 73
--- NOTE | 2017-05-21 12:00 | NUR ---
TELE1/RN NOON ROUNDS NO ACUTE CHANGE OF CONDITION. MONITORING CONTINUED.
[2017-05-21 16:00] VITALS: BP 138/73
--- NOTE | 2017-05-21 19:07 | NUR ---
TELE1/RN AM SHIFT END NOTES NO ACUTE CHANGE OF CONDITION NOTED DURING THE SHIFT. ALL NEEDS MET. PT ENDORSED TO PM NURSE TO CONTINUE CARE. CL WITHIN REACHED AND SAFETY MAINTAINED.
[2017-05-21 20:00] VITALS: BP 136/74
[2017-05-21] MEDS: QUETIAPINE FUMARATE 25 MG TABLET PO SCH ×2 (20:00→21:06)
[2017-05-22] VITALS (7 sets, daily range): BP systolic 94–155; BP diastolic 44–81
[2017-05-22] MEDS: PIPERACILLIN /TAZOBACTAM 3.375 G in IV D5W 50 ML IV SCH ×4 (00:22→17:21)
[2017-05-22] MEDS: IPRATROPIUM NEB FS 0.5 MG/2.5 ML AMPUL.NEB NEB SCH ×3 (02:10→14:26)
[2017-05-22 07:10] LABS: CALCIUM, SERUM 8.7 mg/dL (8.5-10.1); CHLORIDE 101 mmol/L (98-107); CREATININE 0.9 mg/dL (0.6-1.3); GLUCOSE 97 mg/dL (74-106); MAGNESIUM 2.2 mg/dL (1.8-2.4); PHOSPHORUS 3.4 mg/dL (2.5-4.9); POTASSIUM 3.5 mmol/L (3.5-5.1); SODIUM SERUM 144 mmol/L (136-145); UREA NITROGEN, BLOOD 22 mg/dL (7-18)
[2017-05-22 07:12] LABS: EOSINOPHILS % (AUTO) 0.1 % (0.0-6.0); HEMATOCRIT 38 % (39-51); LYMPHOCYTES # (AUTO) 0.9 /CMM (0.8-4.8); LYMPHOCYTES % (AUTO) 9.9 % (20.0-44.0); MEAN CORPUSCULAR HEMOGLOBIN 30 PG (26.0-33.0); MEAN CORPUSCULAR HGB CONC 32 g/dl (31.0-36.0); MEAN CORPUSCULAR VOLUME 94 fL (80-96); MONOCYTES # (AUTO) 1.3 /CMM (0.1-1.30); MONOCYTES % (AUTO) 13.6 % (2.0-12.0); NEUTROPHILS # (AUTO) 7.1 /CMM (1.8-8.9); NEUTROPHILS % (AUTO) 76.4 % (43.0-81.0); PLATELET COUNT (AUTO) 158 /CMM (150-450); RDW COEFFICIENT OF VARIATION 15.1 (11.5-15.0); RED BLOOD CELL COUNT(AUTO) 3.99 MIL/uL (4.5-6.0); WHITE BLOOD COUNT (AUTO) 9.2 K/uL (4.3-11.0)
[2017-05-22 07:34] LABS: CARBON DIOXIDE 45 mmol/L (21-32)
[2017-05-22] MEDS: FINASTERIDE (5 MG) 5 MG TABLET PO SCH (08:13)
[2017-05-22] MEDS: SERTRALINE HCL 50 MG TABLET PO SCH (08:13)
[2017-05-22] MEDS: GABAPENTIN 300 MG CAPSULE PO SCH ×4 (08:13→21:14)
[2017-05-22] MEDS: ASPIRIN 81 MG TAB.CHEW PO SCH (08:13)
[2017-05-22] MEDS: VANCOMYCIN 1.25 GM in IV D5W 500 ML IV SCH (08:13)
[2017-05-22] MEDS: ATORVASTATIN 40 MG TABLET PO SCH (08:13)
[2017-05-22] MEDS: LACTOBACILLUS RHAMNOSUS GG 1 EACH CAP.SPRINK PO SCH ×2 (08:13→16:50)
[2017-05-22] MEDS: ENOXAPARIN SODIUM 40 MG/0.4 ML DISP.SYRIN SQ SCH (08:14)
[2017-05-22] MEDS: Z GUARD REMEDY 2 OZ OINT TP SCH (08:15)
[2017-05-22] MEDS: ACETYLCYSTEINE 10% SOLN 400 MG/4 ML VIAL NEB SCH ×3 (08:24→23:30)
--- NOTE | 2017-05-22 18:22 | NUR ---
Tele/RN - Notes Patient awake, A/O x 2, states feeling better, remain afebrile, not in any form of distress, denies pain, tolerating on 3lpm via NC, nocturnal Bipap, tele shows SR. Patient on Zosyn and Vanco for possible aspiration. Aspiration precautions maintained. Pending Vega eval. Will continue with current plan of care.
[2017-05-22] MEDS: QUETIAPINE FUMARATE 25 MG TABLET PO SCH (21:14)
[2017-05-23] VITALS: BP 143/76
[2017-05-23] MEDS: PIPERACILLIN /TAZOBACTAM 3.375 G in IV D5W 50 ML IV SCH ×5 (00:59→23:45)
[2017-05-23 04:00] VITALS: BP 132/70
--- NOTE | 2017-05-23 07:30 | NUR ---
ACCOUNTS PAYABLE REPRESENTATIVE AM NOTES PT IN BED, AWAKE/ORIENTED X 2, APANISH SPEAKING, AFEBRILE, ON 3L O2 ON AND OFF, WITH NOCTURNAL BIPAP, NOT IN ANY DISTRESS, TELEMETRY READS SR HR 81, DENIES CHEST PAIN OR DISCOMFORT AT THIS TIME, ANGELA MIDLINE AT TKO, SITE CLEAR, SEE NURSING FLOWSHEET FOR SKIN ISSUES, ASPIRATION PRECAUTIONS, MECHANICAL SOFT DIET, BED REST FOR NOW, ASPIRATION PRECAUTION MAINTAINED, WILL TURN AND REPOSITION, PENDING BYRD EVALUATION, WILL CONTINUE WITH CURRENT PLAN OF CARE. BED LOW LOCKED, CALL LIGHT WITHIN REACH.
[2017-05-23] MEDS: ACETYLCYSTEINE 10% SOLN 400 MG/4 ML VIAL NEB SCH ×3 (07:33→23:41)
[2017-05-23 07:55] LABS: CALCIUM, SERUM 9.1 mg/dL (8.5-10.1); CHLORIDE 101 mmol/L (98-107); CREATININE 0.7 mg/dL (0.6-1.3); GLUCOSE 94 mg/dL (74-106); MAGNESIUM 2.1 mg/dL (1.8-2.4); PHOSPHORUS 3.4 mg/dL (2.5-4.9); POTASSIUM 3.6 mmol/L (3.5-5.1); SODIUM SERUM 146 mmol/L (136-145); UREA NITROGEN, BLOOD 15 mg/dL (7-18)
[2017-05-23 07:56] LABS: BASOPHILS % (AUTO) 0.2 % (0.0-2.0); EOSINOPHILS # (AUTO) 0.1 /CMM (0.0-0.7); EOSINOPHILS % (AUTO) 1.5 % (0.0-6.0); HEMATOCRIT 38 % (39-51); HEMOGLOBIN 12.5 g/dL (13.5-17.5); LYMPHOCYTES # (AUTO) 0.7 /CMM (0.8-4.8); LYMPHOCYTES % (AUTO) 8.3 % (20.0-44.0); MEAN CORPUSCULAR HEMOGLOBIN 31 PG (26.0-33.0); MEAN CORPUSCULAR HGB CONC 33 g/dl (31.0-36.0); MEAN CORPUSCULAR VOLUME 94 fL (80-96); MONOCYTES # (AUTO) 1.1 /CMM (0.1-1.30); MONOCYTES % (AUTO) 12.5 % (2.0-12.0); NEUTROPHILS # (AUTO) 6.6 /CMM (1.8-8.9); NEUTROPHILS % (AUTO) 77.5 % (43.0-81.0); PLATELET COUNT (AUTO) 159 /CMM (150-450); RDW COEFFICIENT OF VARIATION 14.8 (11.5-15.0); RED BLOOD CELL COUNT(AUTO) 4.06 MIL/uL (4.5-6.0); WHITE BLOOD COUNT (AUTO) 8.5 K/uL (4.3-11.0)
[2017-05-23 08:00] VITALS: BP_SYST 170; BP_SYST 179; BP_DIAS 90; BP_DIAS 92
[2017-05-23 08:16] LABS: CARBON DIOXIDE 46 mmol/L (21-32)
[2017-05-23] MEDS: Z GUARD REMEDY 2 OZ OINT TP SCH (08:42)
[2017-05-23] MEDS: ATORVASTATIN 40 MG TABLET PO SCH (08:42)
[2017-05-23] MEDS: GABAPENTIN 300 MG CAPSULE PO SCH ×4 (08:42→22:13)
[2017-05-23] MEDS: LACTOBACILLUS RHAMNOSUS GG 1 EACH CAP.SPRINK PO SCH ×2 (08:42→17:24)
[2017-05-23] MEDS: SERTRALINE HCL 50 MG TABLET PO SCH (08:42)
[2017-05-23] MEDS: ASPIRIN 81 MG TAB.CHEW PO SCH (08:42)
[2017-05-23] MEDS: FINASTERIDE (5 MG) 5 MG TABLET PO SCH (08:42)
[2017-05-23] MEDS: ENOXAPARIN SODIUM 40 MG/0.4 ML DISP.SYRIN SQ SCH (08:48)
--- NOTE | 2017-05-23 09:30 | NUR ---
TELE1 RN NOTES ADMINISTERED DUE MEDS.
--- NOTE | 2017-05-23 11:58 | NUR ---
ARMORER TECHNICIAN NOTES STARTED ZOSYN IV.
[2017-05-23 12:00] VITALS: BP 161/86
[2017-05-23 16:00] VITALS: BP_SYST 146; BP_SYST 161; BP_DIAS 73; BP_DIAS 86
--- NOTE | 2017-05-23 17:24 | NUR ---
COMPUTER TECHNICAL SPECIALIST NOTES STARTED ZOSYN IV.
--- NOTE | 2017-05-23 18:49 | NUR ---
FORGE PRESS OPERATOR CLOSING NOTES PT RESTING COMFORTABLY, AWAKE/ORIENTED X 2, POLISH SPEAKING, AFEBRILE, ON 3L O2 ON AND OFF, WITH NOCTURNAL BIPAP, NOT IN ANY DISTRESS, TELEMETRY READS SR HR 80s, DENIES CHEST PAIN OR DISCOMFORT AT THIS TIME, ANGELA MIDLINE AT TKO, SITE CLEAR, ASPIRATION PRECAUTIONS, MECHANICAL SOFT DIET, BED REST FOR NOW, ASPIRATION PRECAUTION MAINTAINED, TURNED AND REPOSITIONED, DC PLAN TO BYRD EVALUATION, ALL NEEDS MET. NO OTHER SIGNIFICANT CHANGE IN CONDITION. BED LOW LOCKED, CALL LIGHT WITHIN REACH. WILL ENDORSE TO NEXT SHIFT FOR ALESSANDRO.
[2017-05-23 20:00] VITALS: BP_SYST 143; BP_SYST 146; BP_DIAS 63; BP_DIAS 73
--- NOTE | 2017-05-23 20:00 | NUR ---
TELE 1 RN NOTE PT IN BED A/A/O X 2, NO SOB, NO DISTRESS OR DISCOMFORT NOTED. DENIES PAIN AT THIS TIME. PT ON BARIMAXX BED. PT WANT BIPAP AT 2300. ON TELE SR WITH OCCASIONAL PVC HR 83. ANGELA WITH MIDLINE TKO #18 G INTACT AND PATENT, NO S/S OF INFILTRATION NOTED. REPOSITION HIM FOR COMFORT. SIDE RAILS UP X 3 AND CALL LIGHT WITHIN REACH. VSS. CONTINUE TO MONITOR HIM.
[2017-05-23] MEDS: QUETIAPINE FUMARATE 25 MG TABLET PO SCH (22:13)
[2017-05-24] VITALS (7 sets, daily range): BP systolic 131–160; BP diastolic 66–97
[2017-05-24] MEDS: PIPERACILLIN /TAZOBACTAM 3.375 G in IV D5W 50 ML IV SCH ×3 (05:23→17:13)
--- NOTE | 2017-05-24 06:20 | NUR ---
TELE 1 RN NOTE PT IN BED ASLEEP, AROUSABLE. NO DISTRESS OR DISCOMFORT NOTED. DENIES PAIN. ON TELE SR WITH OCCASIONAL PVC HR 98. KEPT HER DRY AND CLEAN. ALL NEEDS ATTENDED. SIDE RAILS UP X 3 AND CALL LIGHT WITHIN REACH. WILL ENDORSE TO DAY SHIFT NURSE FOR CONTINUE TO CARE.
--- NOTE | 2017-05-24 07:30 | NUR ---
GUNSTOCK REPAIRER AM NOTES PT IN BED, AWAKE/ORIENTED X 2, KYRGYZ SPEAKING, AFEBRILE, ON 3L O2 ON AND OFF, WITH NOCTURNAL BIPAP, NOT IN ANY DISTRESS, TELEMETRY READS SR WITH PVCs HR 84, DENIES CHEST PAIN OR DISCOMFORT AT THIS TIME, ANGELA MIDLINE AT TKO, SITE CLEAR, SEE NURSING FLOWSHEET FOR SKIN ISSUES, ASPIRATION PRECAUTIONS, MECHANICAL SOFT DIET, BED REST FOR NOW, ASPIRATION PRECAUTION MAINTAINED, WILL TURN AND REPOSITION, PENDING BYRD EVALUATION, WILL CONTINUE WITH CURRENT PLAN OF CARE. BED LOW LOCKED, CALL LIGHT WITHIN REACH.
[2017-05-24] MEDS: ACETYLCYSTEINE 10% SOLN 400 MG/4 ML VIAL NEB SCH ×2 (08:15→15:06)
[2017-05-24] MEDS: FINASTERIDE (5 MG) 5 MG TABLET PO SCH (08:53)
[2017-05-24] MEDS: GABAPENTIN 300 MG CAPSULE PO SCH ×3 (08:53→16:35)
[2017-05-24] MEDS: Z GUARD REMEDY 2 OZ OINT TP SCH (08:53)
[2017-05-24] MEDS: SERTRALINE HCL 50 MG TABLET PO SCH (08:53)
[2017-05-24] MEDS: ATORVASTATIN 40 MG TABLET PO SCH (08:53)
[2017-05-24] MEDS: ASPIRIN 81 MG TAB.CHEW PO SCH (08:53)
[2017-05-24] MEDS: LACTOBACILLUS RHAMNOSUS GG 1 EACH CAP.SPRINK PO SCH ×2 (08:53→16:35)
[2017-05-24] MEDS: ENOXAPARIN SODIUM 40 MG/0.4 ML DISP.SYRIN SQ SCH (08:54)
[2017-05-24 09:11] LABS: CALCIUM, SERUM 9.4 mg/dL (8.5-10.1); CHLORIDE 99 mmol/L (98-107); CREATININE 0.7 mg/dL (0.6-1.3); GLUCOSE 101 mg/dL (74-106); POTASSIUM 3.7 mmol/L (3.5-5.1); SODIUM SERUM 144 mmol/L (136-145); UREA NITROGEN, BLOOD 14 mg/dL (7-18)
--- NOTE | 2017-05-24 09:15 | NUR ---
SALON CUSTOMER EXPERIENCE SPECIALIST NOTES CO2 LEVEL 45. DR. HERNANDEZ AWARE.
--- NOTE | 2017-05-24 09:30 | NUR ---
TELE1 RN NOTES ADMINISTERED DUE MEDS.
[2017-05-24 09:32] LABS: CARBON DIOXIDE 45 mmol/L (21-32)
--- NOTE | 2017-05-24 11:36 | NUR ---
CAMPUS RECRUITER NOTES STARTED ZOSYN IV.
--- NOTE | 2017-05-24 17:13 | NUR ---
EDUCATION OFFICER NOTES STARTED ZOSYN IV.
[2017-05-24] MEDS ORDERED: QUET25TA PO (17:27)
[2017-05-24] MEDS ORDERED: PIPE3.379 IV (17:27)
[2017-05-24] MEDS ORDERED: LACT1CAP72 PO (17:27)
[2017-05-24] MEDS ORDERED: hydrALAZINE HCL 25 MG TABLET PO ONE (18:00)
--- NOTE | 2017-05-24 18:35 | NUR ---
SLITTING MACHINE OPERATOR HELPER NOTES REPORT GIVEN TO [facility] STAFF NURSE.
--- NOTE | 2017-05-24 18:53 | NUR ---
SENIOR MARKETING SPECIALISTCOMMUTER PILOT PATIENT LEAVING IN STABLE CONDITION. CALLED AND SPOKE WITH PATIENT DAUGHTER BENITA AND NOTIFIED OF DC. REPORT CALLED TO ELLY AT [facility]. ALL DUE MEDS GIVEN AND ALL NEEDS MET. PATIENT MIDLINE IN PLACE AND CLEAN DRY INTACT DRESSING. PATIENT SKIN CARE COMPLETED FOR DC. VS STABLE. ALL NEEDS AT SIDE. PATIENT STATED UNABLE TO SIGN DC PAPERWORK AND DAUGHTER USUALLY DOES. 2 RN TO SIGN DAUGHTER NOT ON PREMISES. PATIENT DC PAPERWORK GIVEN TO EMT. PATIENT LEFT IN STABLE CONDITION NO COMPLICATIONS NOTED. Addendum: 05/24/17 at 1858 by HENRIETTA FENTON RN PATIENT REFUSED TO HAVE PICTURES TAKEN OF HIS SKIN ISSUES. VERY EAGER TO GO.
== END 2017-05-24 19:06 | DRG 133 ==
LOC: ER 19:15 → ICU 21:25 → TELE-TD 05-20 00:04 → TELE1 05-21 11:14
PROC: 5A09357 Assistance with Respiratory Ventilation, Less than 24 Consecutive Hours, Continuous Positive Airway Pressure (ICD-10-PCS; principal; 2017-05-18)
PROC: 05H533Z Insertion of Infusion Device into Right Subclavian Vein, Percutaneous Approach (ICD-10-PCS; 2017-05-19)
DX: J96.22 Acute and chronic respiratory failure with hypercapnia (principal); N17.0 Acute kidney failure with tubular necrosis; G93.40 Encephalopathy, unspecified; E87.2 Acidosis; D69.6 Thrombocytopenia, unspecified; E66.2 Morbid (severe) obesity with alveolar hypoventilation; I69.351 Hemiplegia and hemiparesis following cerebral infarction affecting right dominant side; N40.0 Benign prostatic hyperplasia without lower urinary tract symptoms; J98.11 Atelectasis; J96.21 Acute and chronic respiratory failure with hypoxia; E78.5 Hyperlipidemia, unspecified; F32.9 Major depressive disorder, single episode, unspecified; K21.9 Gastro-esophageal reflux disease without esophagitis; Z66 Do not resuscitate; Z87.891 Personal history of nicotine dependence; Z99.81 Dependence on supplemental oxygen; Z68.39 Body mass index [BMI] 39.0-39.9, adult; L30.4 Erythema intertrigo; F29 Unspecified psychosis not due to a substance or known physiological condition; R41.0 Disorientation, unspecified; D63.8 Anemia in other chronic diseases classified elsewhere; J44.9 Chronic obstructive pulmonary disease, unspecified; I10 Essential (primary) hypertension
CPT/HCPCS: 36415; 36600; 71010-TC; 80048-TC; 80061-TC; 80076-TC; 80202-TC; 81000-TC; 82803-TC; 82962-TC; 83605-TC; 83735-TC; 83880; 84100-TC; 84443-TC; 84484-TC; 85025-TC; 85730-TC; 87040-TC; 87081-TC; 87086-TC; 94762-TC; 99082-TC; A4606; J1650; J1956; J2543; J2930; J3370; J3490; J7040; J7050; J7060; Z7610